=== PATIENT | female | born 1955 | race Caucasian/White ===

== ENCOUNTER 2018-09-15 09:21 | Inpatient (IN) | payer BC ==
--- NOTE | 2018-09-02 12:03 | HP ---
HISTORY AND PHYSICAL: DATE OF SURGERY: 09/15/18 DATE OF OFFICE VISIT: 09/02/18 SURGEON: Yvette Arias MD.* (DICTATED BY JULITO BROWN) PROCEDURE: Left total knee arthroplasty. CHIEF COMPLAINT: Left knee. HISTORY OF PRESENT ILLNESS: Ms. Jaquez is a 63-year-old female with continued complaints of left knee pain. She has failed conservative treatment and elected to proceed with a left total knee arthroplasty. PAST MEDICAL HISTORY: 1. Parkinson's disease. 2. GERD. 3. Depression. 4. Asthma. PAST SURGICAL HISTORY: 1. Breast biopsy. 2. Cholecystectomy. 3. Left knee arthroscopy. 4. Gastric bypass and ulcer repair. CURRENT MEDICATIONS: 1. Amantadine 100 mg twice a day. 2. Carbidopa/levodopa 25/100 three times a day. 3. Cymbalta 60 mg a day. 4. Multivitamin. 5. Probiotic. 6. CoQ10. 7. Vitamin D. 8. Ibuprofen as needed. 9. Vitamin B. 10. Melatonin. ALLERGIES: No known drug allergies. FAMILY HISTORY: Coronary artery disease. SOCIAL HISTORY: A 63-year-old female lives with her boyfriend. She does not smoke, use drugs or alcohol. REVIEW OF SYSTEMS: A complete 14-point review of systems is reviewed with the patient. It was all negative or noncontributory. She denies history of DVT, PE , hepatitis, HIV, or anesthesia problems. PHYSICAL EXAMINATION GENERAL: She is well developed, well nourished, in no acute distress. VITAL SIGNS: She stands 5 feet 1 inch tall, weighs 159 pounds. Her blood pressure is 140/84, heart rate 64. HEENT: Normocephalic, atraumatic. NECK: Supple. No palpable lymph nodes. PULMONARY: The lungs are clear to auscultation bilaterally. CARDIAC: Regular rate and rhythm. Strong S1 and S2. ABDOMEN: Soft, nontender, nondistended. NEUROLOGIC: She is alert and oriented x3. MUSCULOSKELETAL: Left lower extremity, the skin is intact. There are no open wounds or abrasions. There is a moderate joint effusion in the left knee. There is a 15-degree valgus deformity. Range of motion is 10 to 120 degrees of flexion with patellofemoral crepitus. She has a 2+ dorsalis pedis pulse. She is able to dorsiflex and plantarflex and she has intact sensation. ASSESSMENT AND PLAN: Ms. Jaquez is a 63-year-old female with end-stage osteoarthritis of the left knee. She has failed conservative treatment and elected to proceed with a left total knee arthroplasty. The surgery is scheduled for 09/15/[address] Arias discussed the risks and benefits of the surgery at today's visit and all of her questions were answered. She will follow up with Dr. Arias 2 weeks after the surgery. JULITO BROWN [id number] #: [id number]
[~2018-09-15 09:21] MED LIST: Acetaminophen TAB* 325 MG PO ONE; Buffered Lidocaine 1% SYRIN* 1 ML/SYRINGE INTRADERM ONE; Dexamethasone IV* 4 MG/ML 1 ML (4 MG) IV SLOW PU ONE; Famotidine TAB* 20 MG PO ONE; Gabapentin CAP(*) 300 MG PO ONE; Lactated Ringers 1000 ML Bag* 1,000 ML IV SCH; Tranexamic Acid 1,000 MG in NS 0.9% 50 ML* (outpatient use) IV SCH; celeCOXIB CAP* 200 MG PO ONE
--- OUTSIDE RECORDS SUMMARY | 2018-09-15 09:24 | XMS REPORT | Continuity of Care Document ---
:1955 External Reference #:[id number] Author Name Lauren Maher NP Address [address] [place] [address] Care Team Providers Name Role Phone Lauren Maher NP Care Team Information Extracorporeal Technician Unavailable Payers Date Identification Numbers Payment Provider Subscriber Policy Number: [id number] [facility] / [facility] Serene Quintero PayID: [id number] [address] [place] [address] Advance Directives Description No Information Available Problems Date Description Provider Status Onset: 06/15/2013 Parkinson's disease Natan Dobson DO Active Onset: 12/25/2015 Peptic ulcer without hemorrhage, Natan Dobson DO Active without perforation AND without obstruction Onset: 12/25/2015 Restless legs Natan Dobson DO Active Onset: 12/25/2015 Moderate recurrent major depression Natan Dobson DO Active Onset: 01/10/2018 Mild intermittent asthma Lauren Maher NP Active Onset: 01/10/2018 Low back pain Lauren Maher NP Active Onset: 01/10/2018 Allergic rhinitis due to pollen Lauren Maher NP Active Onset: 01/10/2018 Degenerative joint disease Lauren Maher NP Active involving multiple joints Onset: 07/15/2018 Vitamin D deficiency Lauren Maher NP Active Family History Date Family Member(s) Observation Comments Father Age 83 Kidney Failure Mother Hypothyroidism Mother Bipolar Disorder Mother Hypercholesterolemia Mother AAA Social History Type Date Description Comments Sex Unknown Marital Status Lives With Boyfriend 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 Tobacco Use Start: Unknown End: Unknown Former Cigarette Smoker Quit Smoking Status Reviewed: 09/09/18 Former Cigarette Smoker Quit ETOH Use Rarely consumes alcohol Tobacco Use Start: Unknown End: Unknown Patient is a former smoker quit 1985 Allergies, Adverse Reactions, Alerts Date Description Reaction Status Severity Comments 12/30/2012 NSAIDS Active 01/10/2018 Dust Mites Active Medications Medication Date Status Form Strength Qnty SIG Indications Ordering Provider Gabapentin 07/15/ Active Capsules 100mg 90caps take one M54.5 Digiovanna 2018 capsules , by mouth Lauren, at bedtime 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 Vitamin D3 07/15/ Active Capsules 2000Unit 1 by mouth E55.9 Digiovanna 2018 twice , every day LaurenRADHA Multivitamin 07/02/ Active Tablets 1 by mouth Z00.00 Olya, Adult 2017 every day DO Natan Coq10 03/06/ Active Capsules 100mg 1 by mouth Z00.00 Digiovanna 2015 every day , RADHA Glass Probiotic 12/24/ Active Capsules OTC 2 by mouth K27.9 Loya, 2016 every day DO Natan Ibuprofen 06/11/ Active Capsules 200mg 1-2 tabs M54.5 Olya, 2014 by mouth Natan, three DO times a day as needed with food or snack for pain Duloxetine HCL 09/18/ Active Caps DR 60mg 90caps take 1 F33.1 Digiovanna 2013 Part capsule by , mouth Lauren, every day 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 M54.5 Carbidopa-Levodopa ER Active Tablets ER 25-100mg 1 PO tid Kenan Ordonez MD Amantadine HCL Active Capsules 100mg 1 by tabatha Ordonez MD every day in the am and 1 by mouth every day at mid day Tumeric Active 1 tab M54.5 Unknown daily M15.0 Melatonin Active Capsules 1mg 1 by mouth every night as F33.1 Unknown needed M54.5 G25.81 Sulfamethoxazole/Trim 01/10/ Hx Tablets 800-160m 14tabs 1 by mouth R30.0 Digiovanna, ethoprim DS 2018 - g every Lauren 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 01/17/ hours for 7 2017 days Ammonium Lactate 01/06/ Hx Lotion 12% 400gm Apply To L30.1 Olya, 2017 - Hands Twice A DO Natan 01/10/ Day 2018 Nabumetone 10/06/ Hx Tablets 750mg 60tabs 1 by mouth M76.8 Olya, 2016 - twice a day 21 DO Natan 01/06/ with food 2016 Doxycycline Hyclate 09/28/ Hx Tablets 100mg 20tabs 1 by mouth L03.1 Yeyo 2017 - twice a day 1 19 MD Kya 10/08/ hour before a 2017 meal Hydrocortisone 09/28/ Hx Ointment 0.2% 60gm apply 3 times L30.1 Yeyo Valerate 2017 - daily to MD Kya 07/12/ rash until 2018 healed, then taper Naproxen Sodium 09/22/ Hx Tablets 550mg 60tabs take one M72.2 Olya, 2015 - tablet by DO Natan 10/06/ mouth twice a 2016 day with food as needed Tramadol HCL 03/12/ Hx Tablets 50mg 60tabs 1 by mouth 719.4 Olya, 2014 - every 4 hours 5 DO Natan 06/11/ as needed 2014 Halobetasol 06/25/ Hx Ointment 0.05% 60unit apply to hand Olya, Propionate 2013 - s twice a day DO Natan 2015 Pantoprazole Sodium 10/23/ Hx Tablets DR 40mg 90tabs 1 PO qd Olya, 2013 - DO Natan 2015 Voltaren 12/30/ Hx Gel 1% 30unit apply 2 gm up Olya, 2012 - s to every 6 DO Natan 11/05/ hours for 2014 pain Diphenhydramine HCL 12/30/ Hx Capsules 25mg Olya, 2012 - DO Natan 2015 Acetaminophen 12/30/ Hx Capsules 500mg 2 po tid prn Olya, 2012 - DO Natan 2014 Gabapentin / Hx Capsules 300mg 90caps 1 po QHS M79.1 Conner 0000 - MD Ras 2017 Carbidopa / Hx Tablets 25mg 1 PO tid Unknown 0000 - 2014 Ropinirole HCL / Hx Tablets 1mg 1/2 Tab AT G25.8 Marleny, 0000 - 6PM And 1 1 MD Kenan 09/28/ tablet at 2017 bedtime Gabapentin / Hx Capsules 100mg 1 by mouth at G20 Unknown 0000 - 5pm daily 2017 Iron / Hx Tablets 325(65Fe one by mouth Unknown 0000 - ) mg day 2016 Nabumetone / Hx Tablets 750mg 1 by mouth M54.5 Unknown 0000 - twice a day food 2017 Vitamin D3 Adult / Hx Chewtabs 1000Unit 1 by mouth Unknown Gummies 0000 - every day 2017 Immunizations CPT Code Status Date Vaccine Reaction Lot # 56074 Given 07/12/2017 Pneumococcal 23 Immunization Im inj completed, No [id number] Adult Or Immunosuppressed Reaction, Pt Patient tolerated well [id number] Given 07/12/2017 Tdap (Adacel) Ages 7 And Im inj completed, No [id number] Above Only Reaction, Pt tolerated well [id number] Refused 08/23/2018 Flu Vaccine NOS Pt says she does not get flu shots. RAYMUNDO GARDINER 08/23/18 Vital Signs Date Vital Result Comment 09/09/2018 9:54am Body Temperature 99.1 F tympanic Weight 158.50 lb Heart Rate 76 /min BP Systolic 138 mmHg BP Diastolic 78 mmHg Respiratory Rate 18 /min Height 61 inches 5'1" RAYMUNDO GARDINER 08/23/18 O2 % BldC Oximetry 97 % Room Air BMI (Body Mass Index) 29.9 kg/m2 08/23/2018 8:34am Body Temperature 98.0 F tympanic Weight 160.12 lb Heart Rate 76 /min BP Systolic 124 mmHg BP Diastolic 78 mmHg Respiratory Rate 16 /min Height 61 inches 5'1" RAYMUNDO GARDINER 08/23/18 BMI (Body Mass Index) 30.3 kg/m2 07/15/2018 10:45am Weight 162.25 lb Heart Rate 68 /min BP Systolic 144 mmHg BP Diastolic 78 mmHg BP Systolic Recheck 144 mmHg BP Diastolic Recheck 90 mmHg Respiratory Rate 18 /min 01/10/2018 9:03am Weight 170.44 lb Heart Rate 76 /min BP Systolic 122 mmHg BP Diastolic 80 mmHg Respiratory Rate 16 /min Height 61 inches 5'1" 01/10/18 SA,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 ARC BMI (Body Mass Index) 32.2 kg/m2 07/12/2017 10:27am Weight 189.00 lb Heart Rate 72 /min BP Systolic 116 mmHg BP Diastolic 78 mmHg Respiratory Rate 14 /min Height 61.5 inches 5'1.50" BH 07/12/17 BMI (Body Mass Index) 35.1 kg/m2 01/06/2017 10:59am Weight 198.00 lb Heart Rate 69 /min 72 Reg BP Systolic 118 mmHg BP Diastolic 70 mmHg BP Systolic Recheck 130 mmHg BP Diastolic Recheck 80 mmHg Respiratory Rate 14 /min Height 62 inches 5'2" BMI (Body Mass Index) 36.2 kg/m2 10/06/2016 2:31pm Weight 209.00 lb Heart Rate 80 /min BP Systolic 126 mmHg BP Diastolic 70 mmHg Respiratory Rate 16 /min Height 62 inches 5'2" BMI (Body Mass Index) 38.2 kg/m2 10/01/2016 8:56am Weight 209.00 lb pr PT Heart Rate 68 /min BP Systolic 124 mmHg BP Diastolic 84 mmHg Respiratory Rate 18 /min Height 62 inches 5'2" BMI (Body Mass Index) 38.2 kg/m2 09/28/2016 11:26am Weight 209.00 lb Heart Rate 72 /min BP Systolic 130 mmHg BP Diastolic 78 mmHg Respiratory Rate 18 /min Height 62 inches 5'2" BMI (Body Mass Index) 38.2 kg/m2 07/02/2016 1:16pm Weight 209.00 lb Heart Rate 78 /min 80 Reg BP Systolic 130 mmHg BP Diastolic 80 mmHg BP Systolic Recheck 130 mmHg BP Diastolic Recheck 80 mmHg Respiratory Rate 18 /min 03/06/2016 8:05am Weight 206.00 lb Heart Rate 72 /min BP Systolic 130 mmHg BP Diastolic 80 mmHg Respiratory Rate 18 /min Height 62 inches 5'2" BMI (Body Mass Index) 37.7 kg/m2 12/25/2015 10:52am Weight 201.00 lb Heart Rate 66 /min 72 Reg BP Systolic 122 mmHg BP Diastolic 80 mmHg BP Systolic Recheck 130 mmHg BP Diastolic Recheck 80 mmHg Respiratory Rate 18 /min Height 62 inches 5'2" BMI (Body Mass Index) 36.8 kg/m2 09/23/2015 1:02pm Weight 199.00 lb Heart Rate 76 /min BP Systolic 130 mmHg BP Diastolic 78 mmHg Respiratory Rate 18 /min 06/11/2015 11:15am Weight 191.38 lb Heart Rate 78 /min 72 Reg BP Systolic 142 mmHg BP Diastolic 80 mmHg BP Systolic Recheck 130 mmHg BP Diastolic Recheck 80 mmHg Respiratory Rate 24 /min 03/12/2015 2:31pm Weight 187.00 lb Heart Rate 72 /min BP Systolic 136 mmHg BP Diastolic 82 mmHg Respiratory Rate 18 /min 11/05/2014 4:08pm Weight 183.00 lb Heart Rate 66 /min 72 reg BP Systolic 150 mmHg BP Diastolic 90 mmHg BP Systolic Recheck 136 mmHg BP Diastolic Recheck 82 mmHg Respiratory Rate 18 /min Height 62 inches 5'2" (06/10) BMI (Body Mass Index) 33.5 kg/m2 06/25/2014 2:40pm BP Systolic 120 mmHg BP Diastolic 80 mmHg 06/25/2014 2:40pm Weight 181.00 lb Heart Rate 72 /min 72 Reg BP Systolic 130 mmHg BP Diastolic 90 mmHg Respiratory Rate 18 /min Height 62 inches 5'2" 04/16/2014 8:18am Body Temperature 98.1 F Weight 180.00 lb Heart Rate 74 /min BP Systolic 144 mmHg BP Diastolic 88 mmHg Respiratory Rate 18 /min Height 62 inches 5'2" 02/22/2014 1:10pm BP Systolic 128 mmHg BP Diastolic 80 mmHg 02/22/2014 1:10pm Weight 182.00 lb Heart Rate 66 /min 72 Reg BP Systolic 124 mmHg BP Diastolic 80 mmHg Respiratory Rate 18 /min Height 62 inches 5'2" O2 % BldC Oximetry 98 % Ra Results Test Date Facility Test Result H/L Range Note Comprehensive Met Panel-[facility]CMG 08/23/2018 [facility] Sodium 142 mmol/L 135- 146 1 Potassium 4.1 mmol/L 3.5-5.2 Chloride# 103 mmol/L 97-110 2 Carbon Dioxide 31 mmol/L 24-34 Glucose 92 mg/dL 70-105 BUN 20 mg/dL 6-26 Creatinine 0.9 mg/dL 0.5-1.4 Calcium 9.6 mg/dL 8.5-10.2 Total Protein 6.1 g/dL 6.0-8.0 Albumin 4.2 g/dL 3.6-4.9 Globulin 1.9 g/dL Low 2.0-3.5 A/G Ratio 2.2 Ratio 1.0-2.2 Total Bilirubin 1.0 mg/dL 0.1-1.3 Alkaline Phosphatase 112 U/L 24-140 Alt 3 U/L 3-42 Ast 21 U/L 8-42 Anion Gap 8 mmol/L 5-15 3 Shruti Egfr >60 >60 4 Non Shruti Egfr >60 >60 5 CBC with Auto Diff-fcmg 08/23/2018 [facility] WBC 8.1 K/uL 4.1-11.0 RBC 4.90 M/uL 4.00-5.40 Hemoglobin 14.7 gm/dL 12.0-16.0 Hematocrit 42.9 % 36.0-47.0 MCV 87.5 fL 80.0-97.0 MCH 30.0 pg 27.0-32.0 MCHC 34.2 g/dL 32.0-36.0 RDW 14.5 % 11.5-14.5 PLT Count 306 K/ul 140-400 MPV 7.6 FL 7.1-10.7 Neutrophil 67.7 % 35.0-75.0 Lymphocyte 23.1 % 16.0-52.0 Monocyte 7.6 % 2.0-10.0 Eosinophil 1.4 % 0.0-5.0 Basophil 0.2 % 0.0-4.0 Abs Neutrophils 5.5 K/uL 2.1-8.0 Abs Lymphocytes 1.9 K/uL 0.8-5.5 Abs Monocytes 0.6 K/uL 0.1-1.0 Abs Eosinophils 0.1 K/uL 0.0-0.5 Abs Basophils 0.0 K/uL 0.0-0.3 Rout Urine W/ Micro -RL 08/23/2018 [facility] Color HECTOR Appearance CLEAR Spec Grav Urine 1.026 (1.003-1.030) PH Urine 5.0 (5.0-7.5) Leuk Esterase NEGATIVE (Neg) Nitrite Urine NEGATIVE (Neg) Protein Urine NEGATIVE (Neg) Glucose Urine NEGATIVE (Neg) Ketone Urine TRACE (Neg) Urobilinogen 1.0 mg/dL (0-1.0) Bilirubin Urine 1+ Abnormal (Neg) 6 Blood/HGB Urine NEGATIVE (Neg) Urine WBC 0-2 [HPF] (0-5) Urine RBC 0-2 [HPF] (0-2) Epithelial Cells 1+ [HPF] 7 Laboratory 08/23/2018 [facility] Urine Culture Microbiology res 8 test finding <SEE NOTE> Laboratory 01/10/2018 [facility] Allia 9 test finding [phone] <SEE NOTE> Laboratory 01/10/2018 [facility] Pap Smear Thin SEE NOTE 10, 11 test finding Prep Vag/Cerv 01/10/2018 [facility] Vag/Cerv SEE NOTE 12 Culture -RL Culture Affirm 01/10/2018 [facility] Trichomonas Negative Negative Vaginalis Gardnerella Vaginalis Negative Negative Anh Species Negative Negative Laboratory 01/10/2018 [facility] Urine Culture Microbiology res Abnormal 13 test finding <SEE NOTE> Laboratory 01/03/2018 [facility] Hepatitis C NON REACTIVE Non 14 test finding Virus S/CORatio(Lasha Reactive Antibody CBC With Auto 01/03/2018 [facility] WBC 6.6 K/uL 4.1-11.0 Diff RBC 4.57 M/uL 4.00-5.40 Hemoglobin 13.6 gm/dL 12.0-16.0 Hematocrit 40.5 % 36.0-47.0 MCV 88.6 fL 80.0-97.0 MCH 29.7 pg 27.0-32.0 MCHC 33.5 g/dL 32.0-36.0 RDW 14.9 % High 11.5-14.5 PLT Count 296 K/ul 140-400 MPV 7.3 FL 7.1-10.7 Neutrophil 68.6 % 35.0-75.0 Lymphocyte 23.9 % 16.0-52.0 Monocyte 6.0 % 2.0-10.0 Eosinophil 1.3 % 0.0-5.0 Basophil 0.2 % 0.0-4.0 Abs Neutrophils 4.5 K/uL 2.1-8.0 Abs Lymphocytes 1.6 K/uL 0.8-5.5 Abs Monocytes 0.4 K/uL 0.1-1.0 Abs Eosinophils 0.1 K/uL 0.0-0.5 Abs Basophils 0.0 K/uL 0.0-0.3 Comprehensive Met Panel-[facility]CMG 01/03/2018 [facility] Sodium 143 mmol/L 135- 146 15 Potassium 3.6 mmol/L 3.5-5.2 Chloride# 105 mmol/L 97-110 16 Carbon Dioxide 29 mmol/L 24-34 Glucose 94 mg/dL 70-105 BUN 15 mg/dL 6-26 Creatinine 0.9 mg/dL 0.5-1.4 Calcium 8.9 mg/dL 8.5-10.2 Total Protein 5.8 g/dL Low 6.0-8.0 Albumin 3.8 g/dL 3.6-4.9 Globulin 2.0 g/dL 2.0-3.5 A/G Ratio 1.9 Ratio 1.0-2.2 Total Bilirubin 0.9 mg/dL 0.1-1.3 Alkaline Phosphatase 120 U/L 24-140 Alt 8 U/L 3-42 Ast 19 U/L 8-42 Shruti Egfr >60 >60 17 Non Shruti Egfr >60 >60 18 Anion Gap 9 mmol/L 5-15 19 Lipid 01/03/2018 [facility] Cholesterol 144 mg/dL 50-199 Triglycerides 63 mg/dL 30-200 HDL 56 mg/dL 35-85 20 Chol/ HDL Ratio 2.6 ratio Low 3.7-5.6 VLDL 13 mg/dL 2-29 LDL (Calc) 76 mg/dL 20-99 21 Iron Panel 12/31/2016 [facility] Iron, Total 63 g/dL 50-170 22 Transferrin 272.0 mg/dL 203.0-362.0 Tibc (calc) 381 g/dL 261-478 % Iron Saturation 16.5 % 13.0-45.0 Hemoglobin A1c 12/31/2016 [facility] Hemoglobin A1c 5.2 % 4.1-6.5 Estimated Average Glucose Calc 103 71-140 Comprehensive Met Panel-[facility]CMG 12/31/2016 [facility] Sodium 143 mmol/L 135- 146 23 Potassium 4.3 mmol/L 3.5-5.2 Chloride# 106 mmol/L 97-110 24 Carbon Dioxide 29 mmol/L 24-34 Glucose 92 mg/dL 70-105 BUN 17 mg/dL 6-26 Creatinine 1.0 mg/dL 0.5-1.4 Calcium 9.1 mg/dL 8.5-10.2 Total Protein 6.1 g/dL 6.0-8.0 Albumin 3.9 g/dL 3.6-4.9 Globulin 2.2 g/dL 2.0-3.5 A/G Ratio 1.8 Ratio 1.0-2.2 Total Bilirubin 0.9 mg/dL 0.1-1.3 Alkaline Phosphatase 123 U/L 24-140 Alt 3 U/L 3-42 Ast 20 U/L 8-42 Shruti Egfr >60 >60 25 Non Shruti Egfr 55 Low >60 26 Anion Gap 12 mmol/L 7-16 27 CBC With Auto Diff 12/31/2016 [facility] WBC 7.6 K/uL 4.1-11.0 RBC 4.67 M/uL 4.00-5.40 Hemoglobin 13.6 gm/dL 12.0-16.0 Hematocrit 41.1 % 36.0-47.0 MCV 88.0 fL 80.0-97.0 MCH 29.1 pg 27.0-32.0 MCHC 33.1 g/dL 32.0-36.0 RDW 15.7 % High 11.5-14.5 PLT Count 328 K/ul 140-400 Neutrophil 74.5 % 35.0-75.0 Lymphocyte 17.3 % 16.0-52.0 Monocyte 6.8 % 2.0-10.0 Eosinophil 0.9 % 0.0-5.0 Basophil 0.5 % 0.0-4.0 Abs Neutrophils 5.7 K/uL 2.1-8.0 Abs Lymphocytes 1.3 K/uL 0.8-5.5 Abs Monocytes 0.5 K/uL 0.1-1.0 Abs Eosinophils 0.1 K/uL 0.0-0.5 Abs Basophils 0.0 K/uL 0.0-0.3 CBC With Auto Diff 06/24/2016 [facility] WBC 6.2 K/uL 4.1-11.0 RBC 4.29 M/uL 4.00-5.40 Hemoglobin 10.3 gm/dL Low 12.0-16.0 Hematocrit 33.1 % Low 36.0-47.0 MCV 77.1 fL Low 80.0-97.0 MCH 24.0 pg Low 27.0-32.0 MCHC 31.2 g/dL Low 32.0-36.0 RDW 18.6 % High 11.5-14.5 PLT Count 386 K/ul 140-400 Neutrophil 72.5 % 35.0-75.0 Lymphocyte 18.3 % 16.0-52.0 Monocyte 6.3 % 2.0-10.0 Eosinophil 1.3 % 0.0-5.0 Basophil 1.6 % 0.0-4.0 Abs Neutrophils 4.5 K/uL 2.1-8.0 Abs Lymphocytes 1.1 K/uL 0.8-5.5 Abs Monocytes 0.4 K/uL 0.1-1.0 Abs Eosinophils 0.1 K/uL 0.0-0.5 Abs Basophils 0.1 K/uL 0.0-0.3 Basic (BMP) 06/24/2016 [facility] Sodium 140 mmol/L 134-142 Potassium 4.5 mmol/L 3.5-5.2 Chloride 107 mmol/L 97-109 Carbon Dioxide 27 mmol/L 24-34 Glucose 109 mg/dL High 70-105 BUN 12 mg/dL 6-26 Creatinine 0.9 mg/dL 0.5-1.4 Calcium 8.6 mg/dL 8.5-10.2 Anion Gap 11 mmol/L 6-14 Non Shruti Egfr >60 >60 28 Shruti Egfr >60 >60 29 Laboratory test finding 06/24/2016 [facility] Esr 16 mm/hr 0-20 CPK 84 U/L 12-199 Hepatic Panel (LFT) 06/24/2016 [facility] Total Protein 6.0 g/dL 6.0-8.0 Albumin 3.8 g/dL 3.6-4.9 Total Bilirubin 0.7 mg/dL 0.1-1.3 Direct Bilirubin 0.2 mg/dL 0.0-0.4 Alkaline Phosphatase 108 U/L 24-140 Alt 3 U/L 3-42 Ast 22 U/L 8-42 Alkaline Phosphatase 06/24/2016 [facility] Alk Phos Total 137 U/L High 30 Isoenzymes-RL Alk Phos Liver Calc 85 U/L 31 Alk Phos Bone Calc 52 U/L 32 Alk Phos Other Calc 0 U/L 33 CBC With Auto Diff 12/24/2015 [facility] WBC 6.2 K/uL 4.1-11.0 RBC 4.27 M/uL 4.00-5.40 Hemoglobin 10.4 gm/dL Low 12.0-16.0 Hematocrit 32.4 % Low 36.0-47.0 MCV 75.9 fL Low 80.0-97.0 MCH 24.4 pg Low 27.0-32.0 MCHC 32.2 g/dL 32.0-36.0 RDW 17.9 % High 11.5-14.5 PLT Count 368 K/ul 140-400 Neutrophil 70.9 % 35.0-75.0 Lymphocyte 19.8 % 16.0-52.0 Monocyte 6.2 % 2.0-10.0 Eosinophil 2.2 % 0.0-5.0 Basophil 0.9 % 0.0-4.0 Abs Neutrophils 4.4 K/uL 2.1-8.0 Abs Lymphocytes 1.2 K/uL 0.8-5.5 Abs Monocytes 0.4 K/uL 0.1-1.0 Abs Eosinophils 0.1 K/uL 0.0-0.5 Abs Basophils 0.1 K/uL 0.0-0.3 Basic (BMP) 12/24/2015 [facility] Sodium 140 mmol/L 134-142 Potassium 5.0 mmol/L 3.5-5.2 Chloride 107 mmol/L 97-109 Carbon Dioxide 28 mmol/L 24-34 Glucose 91 mg/dL 70-105 BUN 15 mg/dL 6-26 Creatinine 0.8 mg/dL 0.5-1.4 Calcium 8.8 mg/dL 8.5-10.2 Anion Gap 10 mmol/L 6-14 Non Shruti Egfr >60 >60 34 Shruti Egfr >60 >60 35 Laboratory test finding 12/24/2015 [facility] Esr 11 mm/hr 0-20 CPK 80 U/L 12-199 Hepatic Panel (LFT) 12/24/2015 [facility] Total Protein 5.7 g/dL Low 6.0- 8.0 Albumin 3.5 g/dL Low 3.6-4.9 Total Bilirubin 0.6 mg/dL 0.1-1.3 Direct Bilirubin 0.1 mg/dL 0.0-0.4 Alkaline Phosphatase 106 U/L 24-140 Alt 7 U/L 3-42 Ast 19 U/L 8-42 Alkaline Phosphatase 12/24/2015 [facility] Alk Phos Total 126 U/L High 36 Isoenzymes-RL Alk Phos Liver Calc 79 U/L 37 Alk Phos Bone Calc 47 U/L 38 Alk Phos Other Calc 0 U/L 39 Laboratory test 10/26/2014 [facility] Alkaline Phosphatase 115 U/L 24-140 40 finding Basic (BMP) 10/26/2014 [facility] Sodium 138 mmol/L 134-142 Potassium 4.5 mmol/L 3.5-5.2 Chloride 106 mmol/L 97-109 Carbon Dioxide 26 mmol/L 24-34 Glucose 88 mg/dL 70-105 BUN 16 mg/dL 6-26 Creatinine 1.0 mg/dL 0.5-1.4 Calcium 9.1 mg/dL 8.5-10.2 Anion Gap 11 mmol/L 6-14 Non Shruti Egfr 56 Low >60 41 Shruti Egfr >60 >60 42 Alkaline Phosphatase 10/26/2014 [facility] Alk Phos Total 132 U/L High 43 Isoenzymes-RL Alk Phos Liver Calc 90 U/L 44 Alk Phos Bone Calc 42 U/L 45 Alk Phos Other Calc 0 U/L 46 CBC With Auto Diff 10/26/2014 [facility] WBC 6.4 K/uL 4.1-11.0 RBC 4.35 M/uL 4.00-5.40 Hemoglobin 12.1 gm/dL 12.0-16.0 Hematocrit 36.3 % 36.0-47.0 MCV 83.4 fL 80.0-97.0 MCH 27.8 pg 27.0-32.0 MCHC 33.4 g/dL 32.0-36.0 RDW 17.3 % High 11.5-14.5 PLT Count 330 K/ul 140-400 Neutrophil 71.6 % 35.0-75.0 Lymphocyte 20.2 % 16.0-52.0 Monocyte 6.8 % 2.0-10.0 Eosinophil 0.9 % 0.0-5.0 Basophil 0.5 % 0.0-4.0 Abs Neutrophils 4.6 K/uL 2.1-8.0 Abs Lymphocytes 1.3 K/uL 0.8-5.5 Abmon 0.4 K/uL 0.1-1.0 Abs Eosinophils 0.1 K/uL 0.0-0.5 Abs Basophils 0.0 K/uL 0.0-0.3 Laboratory test finding 01/20/2013 N2N/CCD Import Culture Urine See Note 47 Liver Function Tests 01/09/2013 N2N/CCD Import Alb/Glob 1.3 ratio Albumin 3.4 g/dL Low 3.5-5.0 Alkaline Phosphatase 162 U/L High 50-136 Bilirubin,Direct 0.1 mg/dL 0.1-0.4 Bilirubin,Indirect 0.4 mg/dL 0.0-0.9 Bilirubin,Total 0.5 mg/dL 0.2-1.2 Globulin 2.7 g/dL 1.9-4.3 SGPT/Alt 22 U/L Low 30-65 Sgot/Ast 23 U/L 16-40 Total Protein 6.1 g/dL Low 6.3-8.0 Laboratory test finding 01/09/2013 N2N/CCD Import . See Note 48 Calcium 9.2 mg/dL 8.7-10.2 Gamma Glutamyl Transpeptidase 13 U/L 8-35 PTH,Intact 53 pg/mL 15-65 LDL Cholesterol Profile 12/30/2012 N2N/CCD Import Cholesterol 148 mg/dL 120-200 HDL Cholesterol 66 mg/dL 45-83 LDL-Cholesterol 65 mg/dL 62-129 Triglycerides 87 mg/dL 16-150 Laboratory test finding 12/30/2012 N2N/CCD Import Alb/Glob 1.2 ratio Albumin 3.7 g/dL 3.5-5.0 Alkaline Phosphatase 158 U/L High 50-136 Anion Gap 17 mEq/L High 8-16 BUN 16 mg/dL 5-23 BUN/Creat 17.7 ratio Bas% 0.1 % 0.0-1.1 Baso # 0.01 K/uL 0.0-0.1 Bilirubin,Total 0.5 mg/dL 0.2-1.2 Calcium 8.7 mg/dL 8.5-10.1 Carbon Dioxide 25 mEq/L 18-29 Chloride 107 mmol/L 98-107 Creatinine 0.9 mg/dL 0.5-1.4 Eo% 1.0 % 0.0-6.6 Eos # 0.09 K/uL 0.0-0.5 Ferritin 6.2 ng/mL 3-105 Free T4 0.96 ng/dL 0.71-1.85 Globulin 3.0 g/dL 1.9-4.3 Glom Filtration Rate, Estimate >60 mL/min >60 Glucose 87 mg/dL 76-115 Hematocrit 36.8 % 36.0-46.1 Hemoglobin 11.8 gm/dL 11.6-15.8 If >60 mL/min >60 49 Lymph # 2.33 K/uL 0.8-3.4 Lymph % 24.9 % 17.0-46.1 Mean Cell Volume 85.2 fl 80.9-99.0 Mean Corpuscular HGB 27.3 pg 25.9-32.7 Mean Corpuscular HGB Conc 32.1 g/dL 30.8-34.3 Mean Platelet Volume 9.3 fL 8.9-12.4 [place] # 0.75 K/uL 0.3-0.9 [place] % 8.0 % 4.3-13.2 Neut# 6.16 K/uL 1.0-7.0 Neut% 66.0 % 40.4-72.8 Platelet Count 386 K/uL High 155-360 Potassium 4.2 mmol/L 3.5-5.1 Red Blood Count 4.32 M/uL 3.90-5.40 Red Cell Distri Width %CV 16.3 % High 11.7-14.4 Red Cell Distri Width SD 49.5 fl High 3-47 SGPT/Alt 21 U/L Low 30-65 Serum Iron 38 g/dL 25-156 50 Sgot/Ast 20 U/L 16-40 Sodium 145 mmol/L 136-145 Thyroid Stim Hormone 1.93 uIU/mL 0.49-4.67 Total Protein 6.7 g/dL 6.3-8.0 Vitamin B12 258 pg/mL 200-900 51 Vitamin D,25-Hydroxy 21.0 ng/mL Low 30.0-100.0 52 White Blood Count 9.3 K/uL 3.1-10.7 Laboratory test finding 12/30/2012 N2N/CCD Import Urine Culture See Note 53 1 Updated reference range on new analyzer 2 Updated reference range on new analyzer 3 Updated Reference Range 4 Concerning GFR Guidelines for Americans: Normal function or mild renal disease, if clinically at risk: >/=60 mL/min Moderately decreased: 30-59 Severely decreased: 15-29 Renal failure: <15 5 Concerning GFR Guidelines: Normal function or mild renal disease, if clinically at risk: >/=60 mL/min Moderately decreased: 30-59 Severely decreased: 15-29 Renal failure: <15 Glomerular Filtration Rate (GFR) is estimated based on the MDRD equation, which assumes a steady state for creatinine as recommended by the National Kidney Disease Education Program in conjunction with the National Institutes of Health and the National Kidney Foundation. Clinical conditions in which it may be necessary to measure GFR by using clearance methods include extremes of age and body size, severe malnutrition or obesity, diseases of skeletal muscle, paraplegia or quadriplegia, vegetarian diet, rapidly changing kidney function, and calculation of the dose of potentially toxic drugs that are excreted by the kidneys. 6 INTERFERING SUBSTANCES MAY CAUSE FALSE POSITIVE BILIRUBIN, WHICH HAS BEEN SHOWN TO BE CLINICALLY INSIGNIFICANT. CORRELATE WITH OTHER TESTING. 7 Unless otherwise specified, testing performed by [facility] [address] [place] [id number] Microbiology results SOURCE Clean Catch Midstream FINAL RESULT <10,000 CFU/ML Mixed urogenital victorino consistent with contamination. Request fresh specimen if indicated. [address] [place] [address] Amplified Molecular High Risk HPV Test Patient Name:SERENE QUINTERO Patient :1955 Ordering Physician:LAUREN MAHER 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 Accession Number [id number] Specimen(s) Received A: High Risk HPV Thin Prep Endocervical Pap Smear - One Vial Other Case Numbers: [id number] Diagnosis RISK GROUPS RESULTS High Risk NEGATIVE Tested for HPV Types (16, 18, 31, 33, 35, 39, 45, 51, 52, 56, 58, 59, 66, 68) Reported: 01/13/2018 08:45 Electronically Signed Out By Dixie Ireland christina Cabrera 10 SCHEDULE 1 WEEK PRIOR TO NEXT VISIT 11 [facility]. [address] [place] [id number] CYTOLOGY REPORT Source of Specimen(s): Thin Prep Endocervical Pap Smear - One Vial Date of Last Menstrual Period: 2005 Menstrual History: Post-menopausal Other Clinical Conditions: Last Pap Smear: 2009 normal HPV ASSAY REQUESTED Specimen Adequacy SATISFACTORY FOR EVALUATION PRESENCE OF ENDOCERVICAL/TRANSFORMATION ZONE COMPONENT General Categorization NEGATIVE FOR INTRAEPITHELIAL LESION OR MALIGNANCY Interpretation NEGATIVE FOR INTRAEPITHELIAL LESION OR MALIGNANCY Atrophy Comment HPV testing will be performed and a separate report will be issued. Reported: 01/12/2018 13:37 Electronically Signed Out By Caroline Gilliam MS,[facility])([facility]) [facility] ICD9 Code: Z01.419 CPT code: A: [id number] Unless otherwise specified, [facility] [address] [id number] 12 SPECIMEN DESCRIPTION VAGINAL SPECIMEN GROUP B STREP CULT. NEGATIVE: BETA HEMOLYTIC STREPTOCOCCI GROUP B B Y PCR CULTURE RESULTS NORMAL VAGINAL VICTORINO NO NEISSERIA GONORRHOEAE ISOLATED REPORT STATUS FINAL 01/13/2018 Unless otherwise specified, testing performed by [facility] [address] [place] [id number] [phone] Microbiology results SOURCE Clean Catch Midstream COLONY COUNT >100,000 CFU/ML PRELIMINARY RESULT Gram Negative Asim. ID & Sensitivity to Follow. 01/11/2018 2:55 PM FINAL RESULT Escherichia coli (Isolate 1) Sensitivity Analysis Isolate 1 --------- AMIKACIN <=16 S AMOXICILLIN/CLAVULANATE <=8/4 S AMPICILLIN <=8 S AMPICILLIN/SULBACTAM <=8/4 S CEFAZOLIN <=2 S CEFEPIME <=8 S CEFOTAXIME <=2 S CEFTRIAXONE <=1 S CEFUROXIME <=4 S CIPROFLOXACIN <=1 S ERTAPENEM <=0.5 S GENTAMYCIN <=2 S IMIPENEM <=1 S LEVOFLOXACIN <=2 S NITROFURANTOIN <=32 S PIPERACILLIN/TAZOBACTAM <=16 S TETRACYCLINE <=4 S TOBRAMYCIN <=4 S TRIMETHOPRIM/SULFAMETHOXAZ <=2/38 S S=Sensitive;I=Indeterminate;R=Resistant 14 S/CO Ratio >/=1.0 is REACTIVE. S/CO <5.0 is Low Reactive. S/CO >/= 5.0 is High Reactive. Effective Feb 19, 2017 all anti-HCV reactive samples are sent for quantitative PCR confirmation. 15 Updated reference range on new analyzer 16 Updated reference range on new analyzer 17 Concerning GFR Guidelines for Americans: Normal function or mild renal disease, if clinically at risk: >/=60 mL/min Moderately decreased: 30-59 Severely decreased: 15-29 Renal failure: <15 18 Concerning GFR Guidelines: Normal function or mild renal disease, if clinically at risk: >/=60 mL/min Moderately decreased: 30-59 Severely decreased: 15-29 Renal failure: <15 Glomerular Filtration Rate (GFR) is estimated based on the MDRD equation, which assumes a steady state for creatinine as recommended by the National Kidney Disease Education Program in conjunction with the National Institutes of Health and the National Kidney Foundation. Clinical conditions in which it may be necessary to measure GFR by using clearance methods include extremes of age and body size, severe malnutrition or obesity, diseases of skeletal muscle, paraplegia or quadriplegia, vegetarian diet, rapidly changing kidney function, and calculation of the dose of potentially toxic drugs that are excreted by the kidneys. 19 Updated Reference Range 20 Per NCEP ATP III Guidelines: Results lower than 40 mg/dL are suggestive of increased risk for coronary artery disease. Results > or=to 60 mg/dL are considered a negative risk factor. 21 Per NCEP ATP III Guidelines: Normal Population <130 Patients with medical conditions: CHD/DM Optimal: <100 Borderline high: 130-159 High: 160-189 Very high: >189 22 faxed to [facility] SCHEDULE 1 WEEK PRIOR TO NEXT VISIT 23 Updated reference range on new analyzer 24 Updated reference range on new analyzer 25 Concerning GFR Guidelines for Americans: Normal function or mild renal disease, if clinically at risk: >/=60 mL/min Moderately decreased: 30-59 Severely decreased: 15-29 Renal failure: <15 26 Concerning GFR Guidelines: Normal function or mild renal disease, if clinically at risk: >/=60 mL/min Moderately decreased: 30-59 Severely decreased: 15-29 Renal failure: <15 Glomerular Filtration Rate (GFR) is estimated based on the MDRD equation, which assumes a steady state for creatinine as recommended by the National Kidney Disease Education Program in conjunction with the National Institutes of Health and the National Kidney Foundation. Clinical conditions in which it may be necessary to measure GFR by using clearance methods include extremes of age and body size, severe malnutrition or obesity, diseases of skeletal muscle, paraplegia or quadriplegia, vegetarian diet, rapidly changing kidney function, and calculation of the dose of potentially toxic drugs that are excreted by the kidneys. 27 Updated reference range on new analyzer 28 Concerning GFR Guidelines: Normal function or mild renal disease, if clinically at risk: >/=60 mL/min Moderately decreased: 30-59 Severely decreased: 15-29 Renal failure: <15 Glomerular Filtration Rate (GFR) is estimated based on the MDRD equation, which assumes a steady state for creatinine as recommended by the National Kidney Disease Education Program in conjunction with the National Institutes of Health and the National Kidney Foundation. Clinical conditions in which it may be necessary to measure GFR by using clearance methods include extremes of age and body size, severe malnutrition or obesity, diseases of skeletal muscle, paraplegia or quadriplegia, vegetarian diet, rapidly changing kidney function, and calculation of the dose of potentially toxic drugs that are excreted by the kidneys. 29 Concerning GFR Guidelines for Americans: Normal function or mild renal disease, if clinically at risk: >/=60 mL/min Moderately decreased: 30-59 Severely decreased: 15-29 Renal failure: <15 30 Reference range: 40 to 120 31 Reference range: 0 to 94 INTERPRETIVE INFORMATION: Alk-Phosphatase Liver Calc Bone Specific Alkaline Phosphatase (9312279) and 5'-nucleotidase ([id number]) may be useful in identifying disorders of bone and liver, respectively. 32 Reference range: 0 to 55 33 Performed by [facility], [employer],[place] [id number] [email or web address], Hermilo Douglas MD, Lab. Director Unless otherwise specified, testing performed by [facility] [address] [place] [address] 34 Concerning GFR Guidelines: Normal function or mild renal disease, if clinically at risk: >/=60 mL/min Moderately decreased: 30-59 Severely decreased: 15-29 Renal failure: <15 Glomerular Filtration Rate (GFR) is estimated based on the MDRD equation, which assumes a steady state for creatinine as recommended by the National Kidney Disease Education Program in conjunction with the National Institutes of Health and the National Kidney Foundation. Clinical conditions in which it may be necessary to measure GFR by using clearance methods include extremes of age and body size, severe malnutrition or obesity, diseases of skeletal muscle, paraplegia or quadriplegia, vegetarian diet, rapidly changing kidney function, and calculation of the dose of potentially toxic drugs that are excreted by the kidneys. 35 Concerning GFR Guidelines for Americans: Normal function or mild renal disease, if clinically at risk: >/=60 mL/min Moderately decreased: 30-59 Severely decreased: 15-29 Renal failure: <15 36 Reference range: 40 to 120 37 Reference range: 0 to 94 INTERPRETIVE INFORMATION: Alk-Phosphatase Liver Calc Bone Specific Alkaline Phosphatase (8732553) and 5'-nucleotidase (4973429) may be useful in identifying disorders of bone and liver, respectively. 38 Reference range: 0 to 55 39 Performed by [facility], [address] [facility] [place] [address] [email or web address], Hermilo Douglas MD, Lab. Director Unless otherwise specified, testing performed by [facility] [place] [address] 40 SCHEDULE 1 WEEK PRIOR TO NEXT VISIT 41 Concerning GFR Guidelines: Normal function or mild renal disease, if clinically at risk: >/=60 mL/min Moderately decreased: 30-59 Severely decreased: 15-29 Renal failure: <15 Glomerular Filtration Rate (GFR) is estimated based on the MDRD equation, which assumes a steady state for creatinine as recommended by the National Kidney Disease Education Program in conjunction with the National Institutes of Health and the National Kidney Foundation. Clinical conditions in which it may be necessary to measure GFR by using clearance methods include extremes of age and body size, severe malnutrition or obesity, diseases of skeletal muscle, paraplegia or quadriplegia, vegetarian diet, rapidly changing kidney function, and calculation of the dose of potentially toxic drugs that are excreted by the kidneys. 42 Concerning GFR Guidelines for Americans: Normal function or mild renal disease, if clinically at risk: >/=60 mL/min Moderately decreased: 30-59 Severely decreased: 15-29 Renal failure: <15 43 Reference range: 40 to 120 44 Reference range: 0 to 94 INTERPRETIVE INFORMATION: Alk-Phosphatase Liver Calc Bone Specific Alkaline Phosphatase (9644379) and 5'-nucleotidase (4686900) may be useful in identifying disorders of bone and liver, respectively. 45 Reference range: 0 to 55 46 Performed by [facility], [address] [place] [id number] [email or web address], Hermilo Douglas MD, Lab. Director Unless otherwise specified, testing performed by [facility] [address] [place] [phone] NO GROWTH: FINAL REPORT 48 Interpretation Intact PTH Calcium (pg/mL) (mg/dL) Normal 15 - 65 8.6 - 10.2 Primary Hyperparathyroidism >65 >10.2 Secondary Hyperparathyroidism >65 <10.2 Non-Parathyroid Hypercalcemia <65 >10.2 Hypoparathyroidism <15 < 8.6 Non-Parathyroid Hypocalcemia 15 - 65 < 8.6 Performed at: RN - [facility] [address] [id number] Department Director: Michelle Trevino MD, Phone: [phone] 49 Note: Persistent reduction for 3 months or more in an eGFR <60 mL/min/1.73 m2 defines CKD. Patients with eGFR values >/=60 mL/min/1.73 m2 may also have CKD if evidence of persistent proteinuria is present. The original MDRD equation for estimated GFR is not valid for patients less than 18 years of age. Additional information may be found at www.kdoqi.org. 50 QUERY: Is the Patient Fasting? U 51 Borderline result. Homocysteine and Methylmalonic acid should be considered for values greater than 200 pg/mL and less that 400 pg/mL. 52 Vitamin D deficiency has been defined by the [place] of [employer] and an Endocrine Society practice guideline as a level of serum 25-OH vitamin D less than 20 ng/mL (1,2). The Endocrine Society went on to further define vitamin D insufficiency as a level between 21 and 29 ng/mL (2). 1. IOM ([place] of [employer]). 2010. Dietary reference intakes for calcium and D. [place]: The National Academies Press. 2. Amaris MF, Cristela KNIGHT, Kenny ZARATE, et al. Evaluation, treatment, and prevention of vitamin D deficiency: an Endocrine Society clinical practice guideline. JCEM. 2010; 96(7):1911-30. Performed at: RN - [facility] [address] [id number] Department Director: Michelle Trevino MD, Phone: [phone] COLONY COUNT ! >100,000 CFU/ml Organism 1 ! ESCHERICHIA COLI QUANTITY ! MANY ESCHERICHIA COLI Target Route Dose M.I.C. RX AB COST ------ ----- -------- ------ -- ------ NITROFURANTOIN <=16 S TRIMETHOPRIM/ SULFAMETHOXAZOLE <=20 S AMPICILLIN >=32 R CEFAZOLIN <=4 S AMPICILLIN/SULBACTAM >=32 R CIPROFLOXACIN <=0.25 S PIPERACILLIN/TAZOBACTAM <=4 S CEFTAZIDIME <=1 S CEFTRIAXONE <=1 S CEFEPIME <=1 S LEVOFLOXACIN <=0.12 S IMIPENEM <=0.25 S GENTAMICIN <=1 S TOBRAMYCIN <=1 S Procedures Date Code Description Status 09/09/2018 25481 Measure Blood Oxygen Level Single Determination Completed 08/23/2018 75739 Electrocardiogram Complete Completed 07/15/2018 91221 Brief Emotional/Behav Assessment W/ Scoring Doc Per Completed Standard [facility] 01/10/2018 96980 Brief Emotional/Behav Assessment W/ Scoring Doc Per Completed Standard [facility] 01/05/2018 50244628 Mammogram Completed 10/01/2016 74056 X-Ray Foot Complete Completed 10/01/2016 87426 X-Ray Foot Complete Completed 10/01/2016 20274 X-Ray Ankle Ap & Lateral Completed 10/01/2016 91679 X-Ray Ankle Ap & Lateral Completed 09/28/2016 13324 X-Ray Foot Complete Completed 03/06/2016 04618 X-Ray Knee Complete W/Obliques & Tunnel And/Or Standing Completed Views 09/23/2015 47062 X-Ray Foot Complete Completed 03/12/2015 86887 X-Ray Hip Complete Two Views Completed 03/12/2015 54563 X-Ray Pelvis Ap Only Completed 03/12/2015 05452 X-Ray Spine Lumbosacral Complete W/Oblique Views Completed 06/28/2009 [id number] Colonoscopy Completed Encounters Type Date Location Provider Dx Diagnosis Office Visit 08/23/2018 PSYCHIATRIC Gabrielle, Z01.818 Encounter for other 8:30a Lauren, 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 preprocedural examination M25.562 Pain in LEFT knee F33.1 Major depressive disorder, recurrent, moderate G20 Parkinson's disease M15.0 Primary generalized (osteo)arthritis M54.5 Low back pain G25.81 Restless legs syndrome J45.20 Mild intermittent asthma, uncomplicated J30.1 Allergic rhinitis due to pollen K27.9 Peptic ulc, site unsp, unsp as ac or chr, w/o hemor or perf E55.9 Vitamin D deficiency, unspecified H43.311 Vitreous membranes and strands, RIGHT eye Z68.30 Body mass index (BMI) 30.0-30.9, adult Office Visit 07/15/2018 11:00a PSYCHIATRIC Lauren Maher, F33.1 Major depressive 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 disorder, recurrent, moderate G20 Parkinson's disease M15.0 Primary generalized (osteo)arthritis M54.5 Low back pain G25.81 Restless legs syndrome J45.20 Mild intermittent asthma, uncomplicated J30.1 Allergic rhinitis due to pollen K27.9 Peptic ulc, site unsp, unsp as ac or chr, w/o hemor or perf M25.562 Pain in LEFT knee H43.311 Vitreous membranes and strands, RIGHT eye E55.9 Vitamin D deficiency, unspecified R03.0 Elevated blood-pressure reading, w/o diagnosis of htn Office Visit 01/10/2018 9:00a PSYCHIATRIC Lauren Maher, 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) w/o abn findings F33.1 Major depressive disorder, recurrent, moderate G20 Parkinson's disease J45.20 Mild intermittent asthma, uncomplicated M54.5 Low back pain G25.81 Restless legs syndrome J30.1 Allergic rhinitis due to pollen M15.0 Primary generalized (osteo)arthritis M79.1 Myalgia R30.0 Dysuria Z68.32 Body mass index (BMI) 32.0-32.9, adult Office Visit 07/12/2017 10:00a PSYCHIATRIC Lauren Maher, F33.1 Major depressive 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 disorder, recurrent, moderate G20 Parkinson's disease M79.1 Myalgia K27.9 Peptic ulc, site unsp, unsp as ac or chr, w/o hemor or perf J45.20 Mild intermittent asthma, uncomplicated D50.9 Iron deficiency anemia, unspecified L30.1 Dyshidrosis [pompholyx] M54.5 Low back pain Z12.31 Encntr screen mammogram for malignant neoplasm of breast Z11.59 Encounter for screening for other viral diseases Z68.35 Body mass index (BMI) 35.0-35.9, adult Z23 Encounter for immunization Office Visit 01/06/2017 11:00a PSYCHIATRIC Natan Dobson DO F33.1 Major depressive disorder, recurrent, moderate R73.01 Impaired fasting glucose G20 Parkinson's disease M79.1 Myalgia K27.9 Peptic ulc, site unsp, unsp as ac or chr, w/o hemor or perf R74.8 Abnormal levels of other serum enzymes G25.81 Restless legs syndrome J45.20 Mild intermittent asthma, uncomplicated Office Visit 10/06/2016 2:30p PSYCHIATRIC Natan Dobson DO M76.821 Posterior tibial tendinitis, RIGHT leg Office Visit 10/01/2016 9:00a PSYCHIATRIC Eleonora Townsend PA M79.671 Pain in RIGHT foot Office Visit 09/28/2016 11:30a PSYCHIATRIC Kya Orona MD M79.671 Pain in RIGHT foot L30.1 Dyshidrosis [pompholyx] L03.119 Cellulitis of unspecified part of limb D50.9 Iron deficiency anemia, unspecified Office Visit 07/02/2016 1:15p PSYCHIATRIC Natan Dobson DO F33.1 Major depressive disorder, recurrent, moderate G20 Parkinson's disease M79.1 Myalgia K27.9 Peptic ulc, site unsp, unsp as ac or chr, w/o hemor or perf R74.8 Abnormal levels of other serum enzymes G25.81 Restless legs syndrome J45.20 Mild intermittent asthma, uncomplicated D50.9 Iron deficiency anemia, unspecified R73.01 Impaired fasting glucose Office Visit 03/06/2016 8:00a PSYCHIATRIC Lauren Maher, M25.562 Pain in LEFT knee 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 Office Visit 12/25/2015 11:00a PSYCHIATRIC Natan Dobson DO F33.1 Major depressive disorder, recurrent, moderate G20 Parkinson's disease R74.9 Abnormal serum enzyme level, unspecified M79.1 Myalgia K27.9 Peptic ulc, site unsp, unsp as ac or chr, w/o hemor or perf G25.81 Restless legs syndrome J45.20 Mild intermittent asthma, uncomplicated D50.9 Iron deficiency anemia, unspecified J30.1 Allergic rhinitis due to pollen Z68.36 Body mass index (BMI) 36.0-36.9, adult Office Visit 09/23/2015 1:00p PSYCHIATRIC Natan Dobson DO M72.2 Plantar fascial fibromatosis Office Visit 06/11/2015 11:15a PSYCHIATRIC Natan Dobson DO F33.1 Major depressive disorder, recurrent, moderate G20 Parkinson's disease J45.20 Mild intermittent asthma, uncomplicated R74.8 Abnormal levels of other serum enzymes M79.1 Myalgia K27.9 Peptic ulc, site unsp, unsp as ac or chr, w/o hemor or perf Office Visit 03/12/2015 2:30p PSYCHIATRIC Natan Dobson DO 719.45 Pain Joint Pelvic Region & Thigh Office Visit 11/05/2014 4:15p PSYCHIATRIC Natan Dobson DO 296.32 Depressive Disorder Major Recurrent Moderate 332.0 Paralysis Agitans 493.10 Asthma Intrinsic Unspecified 790.5 Serum Enzyme Levels Abnormal Other Nonspec 729.1 Myalgia & Myositis Unspec 533.90 Peptic Ulcer Unspec Acute Chronic W/O Hemo Or Perf W/O Obstr Plan of Treatment Future Appointment(s):01/23/2019 10:00 am - Lauren Maher NP at PSYCHIATRIC01/06 8:25 am - Schedule, Laboratory at PSYCHIATRIC09/09/2018 - Lauren Maher NPJ06.9 Acute upper respiratory infection, unspecifiedComments:Increase rest and fluids.Tylenol 1000mg every 4-6 hours as needed for headache or fever.Recommend Mucinex(Guaifenesin) 600mg every 12 hours until cough has resolved.May continue DayQuil and NyQuil as neededHumidifier or steam therapy may be helpful.Viral infections last 10-14 days and cough may lingeras long as 4 -6 weeks. Call for symptoms persistent or worsening by 09/12.Follow up:PRN for fever >101 or no improvement by Wednesday
--- OUTSIDE RECORDS SUMMARY | 2018-09-15 09:25 | XMS REPORT | Continuity of Care Document ---
:1955 External Reference #:[id number] Author Name JULITO Johnson Address [address], [place] [address] Care Team Providers Name Role Phone Maria Luisa Anthony FNP Primary Care Physician Unavailable Payers Date Identification Numbers Payment Provider Subscriber Effective: 2012 Policy Number: [id number] [facility] Serene Quintero Group Number: [id number] [address] PayID: [id number] [place] [address] Advance Directives Description No Information Available Problems Date Description Provider Status Onset: 04/19/2014 Difficulty speaking Jeffrey Silverio M.D. Active Onset: 04/19/2014 Parkinson's disease Jeffrey Silverio M.D. Active Onset: 08/12/2018 Acquired genu valgum Yvette Arias M.D. Active Onset: 08/12/2018 Localized, primary osteoarthritis Yvette Arias M.D. Active Family History Date Family Member(s) Observation Comments General Heart Disease General Thyroid Disease General Kidney Disease Social History Type Date Description Comments Sex Unknown Marital Status Lives With Male Partner Occupation Retired Tobacco Use Start: Unknown Quit 1986 Tobacco Use Start: Unknown Never Smoked Cigars Tobacco Use Start: Unknown Never Smoked A Pipe Smokeless Tobacco Never Used Smokeless Tobacco ETOH Use Denies alcohol use Tobacco Use Start: Unknown End: Patient is a former smoker Unknown Recreational Drug Use Denies Drug Use Smoking Status Reviewed: 08/12/18 Patient is a former smoker Exercise Type/Frequency Exercises sporadically Allergies, Adverse Reactions, Alerts Description No Known Drug Allergies Medications Medication Date Status Form Strength Qnty SIG Indications Ordering Provider Amantadine HCL 10/18/ Active Capsules 100mg 180cap 1 by G24.01 Kenan mcbride mouth [place], twice a M.D. day Carbidopa-Levod 12/21/ Active Tablets 25-100mg 90tabs 1 by Kenan mccarty 2013 mouth [place], every M.D. morning, 1 tab by mouth qnoon and 1 tab by mouth every night Cymbalta / Active Caps DR 60mg 30caps 1 by Unknown 0000 Part mouth every day Multi For Her / Active Tablets 1 by Unknown 50+ 0000 mouth every day Probiotic / Active Tablets DR daily Unknown 0000 Co-Enzyme Q10 / Active Capsules 200mg 2 by Unknown 0000 mouth every day Vitamin D3 / Active Chewtabs 1000Unit 1 by Unknown Adult Gummies 0000 mouth every day otc Ibuprofen / Active Capsules 200mg 1 tab by Unknown 0000 mouth as needed Vitamin B / Active Tablets 1 by Unknown Complex 0000 mouth every day Tumeric With / Active 1 po qday Unknown Cumin 0000 Melatonin / Active Chewtabs 2.5mg 1 tab Unknown Gummies 0000 every night at bedtime as needed Gabapentin 07/16/ Hx Capsules 100mg 30caps 1 by G25.81 Kenan Arana 2016 - mouth [place]y, 07/29/ around M.D. 2018 dinner time Ropinirole HCL 01/22/ Hx Tablets 1mg 135tab 1 at hs Kenan Arana 2014 - s Marleny, 01/13/ M.D. 2016 Ropinirole HCL 11/22/ Hx Tablets 0.25mg 30tabs 1 tab by Kenan Arana 2014 - mouth Marleny, 01/22/ every M.D. 2014 night at bedtime for 1 week then 2 every night at bedtime for 1 week then 3 every night at bedtime for 1 Lodosyn 08/24/ Hx Tablets 25mg 90tabs 1 po tid Kenan Arana 2013 - with Marleny, 11/21/ carbidopa M.D. 2014 /levodopa Carbidopa/Levod 06/08/ Hx Tablets 25-100mg 90tabs 1 po qam Kenan mccarty 2012 - pc for 1 Marleny, 12/21/ wk then 1 M.D. 2013 bid pc for 1 wk then 1 tid pc Vitamin D-3 / Hx Capsules 1000Unit 90caps 2 by Unknown 0000 - mouth 01/18/ every day 2016 Gabapentin / Hx Capsules 300mg 1 by Unknown 0000 - mouth @hs 2017 Gail / Hx Tablets 60mg 180tab 1 by Unknown 0000 - s mouth once a 2016 day as needed Pantoprazole / Hx Tablets DR 40mg 90tabs 1 by Unknown Sodium 0000 - mouth every day 2016 Ferrousul / Hx Tablets 325(65Fe) 1 by Unknown 0000 - mg mouth day 2016 Naproxen / Hx Tablets 500mg 1 tablet Unknown 0000 - with food by mouth 2017 twice a day prn Immunizations Description No Information Available Vital Signs Date Vital Result Comment 08/12/2018 10:48am Height 61 inches 5'1" Weight 158.00 lb BP Systolic 122 mmHg BP Diastolic 79 mmHg Respiratory Rate 16 /min Pain Level 4 BMI (Body Mass Index) 29.9 kg/m2 08/08/2018 9:02am Heart Rate 64 /min BP Systolic Sitting 138 mmHg BP Diastolic Sitting 86 mmHg Respiratory Rate 16 /min Pain Level 2 with movement O2 % BldC Oximetry 99 % 03/03/2018 3:20pm Height 61 inches 5'1" Weight 179.00 lb Heart Rate 70 /min BP Systolic Sitting 124 mmHg BP Diastolic Sitting 70 mmHg Respiratory Rate 17 /min Pain Level 4 back pain, worse in the am BMI (Body Mass Index) 33.8 kg/m2 10/18/2017 10:30am Height 61 inches 5'1" Weight 179.00 lb Heart Rate 72 /min BP Systolic Sitting 130 mmHg BP Diastolic Sitting 80 mmHg Respiratory Rate 16 /min BMI (Body Mass Index) 33.8 kg/m2 08/26/2017 9:09am Height 62 inches 5'2" Weight 184.38 lb Heart Rate 76 /min BP Systolic Sitting 152 mmHg BP Diastolic Sitting 94 mmHg Respiratory Rate 12 /min BMI (Body Mass Index) 33.7 kg/m2 01/14/2017 8:39am Height 62 inches 5'2" Weight 199.00 lb Heart Rate 76 /min BP Systolic 116 mmHg BP Diastolic 74 mmHg Respiratory Rate 16 /min BMI (Body Mass Index) 36.4 kg/m2 07/16/2016 10:50am Height 62 inches 5'2" Weight 207.00 lb Heart Rate 72 /min BP Systolic Sitting 122 mmHg BP Diastolic Sitting 78 mmHg O2 % BldC Oximetry 98 % BMI (Body Mass Index) 37.9 kg/m2 05/16/2015 11:49am Height 62 inches 5'2" Weight 185.31 lb Heart Rate 64 /min BP Systolic Sitting 128 mmHg BP Diastolic Sitting 82 mmHg BMI (Body Mass Index) 33.9 kg/m2 11/22/2014 1:32pm Height 62 inches 5'2" Weight 180.00 lb Heart Rate 68 /min BP Systolic Sitting 126 mmHg BP Diastolic Sitting 90 mmHg BMI (Body Mass Index) 32.9 kg/m2 05/17/2014 8:50am Height 62 inches 5'2" Weight 178.00 lb Heart Rate 70 /min BP Systolic Sitting 148 mmHg BP Diastolic Sitting 100 mmHg BMI (Body Mass Index) 32.6 kg/m2 04/19/2014 9:44am Weight 178.00 lb Heart Rate 78 /min BP Systolic 122 mmHg BP Diastolic 80 mmHg 04/19/2014 9:42am Height 62 inches 5'2" Weight 178.00 lb BMI (Body Mass Index) 32.6 kg/m2 Results Description No Information Available Procedures Date Code Description Status 08/08/2018 39369 Xray Knee 3 Views Completed 04/19/2014 39606 Fibroptic Laryngoscopy Completed Encounters Type Date Location Provider Dx Diagnosis Office Visit 08/12/2018 Orthopedic Yvette Arias, M25.562 Pain in left knee 10:30a [facility] M25.462 Effusion, left knee M17.12 Unilateral primary osteoarthritis, left knee M21.062 Valgus deformity, not elsewhere classified, left knee G20 Parkinson's disease Office Visit 08/08/2018 Orthopedic Hugo Squires M17.12 Unilateral primary 9:00a [facility] MD osteoarthritis, left AT [place] knee M25.362 Other instability, left knee M25.562 Pain in left knee Office Visit 03/03/2018 [place]rya Arana G2Tano Parkinson's 3:30p [facility] disease [place] G25.81 Restless legs syndrome G24.01 Drug induced subacute dyskinesia Office Visit 10/18/2017 10:30a [facility] Kenan Arana G2Tano Parkinson's [facility] M.D. disease G25.81 Restless legs syndrome G24.01 Drug induced subacute dyskinesia Office Visit 08/26/2017 [place] G20 Parkinson's 9:15a [facility] disease [facility] G25.81 Restless legs syndrome Office Visit 01/14/2017 [place] Arana G20 Parkinson's 8:30a [facility] disease [facility] G25.81 Restless legs syndrome Office Visit 07/16/2016 [place] Arana G20 Parkinson's 10:45a [facility] disease [facility] G25.81 Restless legs syndrome Office Visit 05/16/2015 [place] Arana G20 Parkinson's 11:45a [facility] disease [facility] Office Visit 11/22/2014 [place] SYuliya 332.0 Paralysis 1:30p [facility] 784.42 Dysphonia Office Visit 05/17/2014 [place] SYuliya 332.0 Paralysis 8:45a [facility] Office Visit 04/19/2014 [facility] [place] 784.42 Dysphonia 9:45a C.M.AYuliya AT Naresh Silverio M.D. 332.0 Paralysis itans Office Visit 11/23/2013 [place] Arana 332.0 Paralysis 3:15p [facility]0 [facility]alysis 8:45a [facility] Office Visit 06/08/2013 [place] 332.0 Paralysis 3:00p [facility] Plan of Treatment Future Appointment(s):09/15/2018 11:30 am - JAIRO Warren [facility]/15/2018 11:30 am - JULITO Johnson at [facility]09/15/2018 11:30 am - Yvette Arias M.D. [facility]/2018 10:00 am - Yvette Arias M.D. at [facility]/01/2018 9:30 am - Kenan Farmer M.D. at [facility]08/12/2018 - Yvette Arias M.D.M25.562 Pain in left kneeM25.462 Effusion, left kneeM17.12 Unilateral primary osteoarthritis, left kneeFollow up:Follow up: 7-10 days before pfaargtQ78.062 Valgus deformity , not elsewhere classified, left kneeG20 Parkinson's disease
--- OUTSIDE RECORDS SUMMARY | 2018-09-15 09:25 | XMS REPORT | Continuity of Care Document ---
:1955 External Reference #:[id number] Author Name Kaelyn Grigsby Care Team Providers Name Role Phone Lauren Maher NP Care Team Information Helicopter Technician Unavailable Payers Date Identification Numbers Payment Provider Subscriber Policy Number: [id number] [facility] Serene Quintero PayID: [id number] [address] [place] [address] Advance Directives Description No Information Available Problems Date Description Provider Status Onset: 06/15/2013 Parkinson's disease Natan Dobson DO Active Onset: 12/25/2015 Peptic ulcer without hemorrhage, Natan Dobson DO Active without perforation AND without obstruction Onset: 12/25/2015 Restless legs Natan Dobson DO Active Onset: 12/25/2015 Moderate recurrent major depression Natan Dobson DO Active Onset: 01/10/2018 Mild intermittent asthma Lauren Maher MACHINE [employer]OP MAKER HELPER Active Onset: 01/10/2018 Low back pain Lauren Maher NP Active Onset: 01/10/2018 Allergic rhinitis due to pollen Lauren Maher NP Active Onset: 01/10/2018 Degenerative joint disease Lauren Maher MACHINE HOOP MAKER HELPER Active involving multiple joints Onset: 07/15/2018 Vitamin [...] Former Cigarette Smoker Quit Smoking Status Reviewed: 08/23/18 Former Cigarette Smoker Quit ETOH Use Rarely [...] capsules , by mouth Lauren, at bedtime MACHINE HOOP MAKER HELPER Vitamin D3 07/15/ Active Capsules 2000Unit 1 by mouth E55.9 Digiovanna 2019 twice , every day RADHA Glass Multivitamin 07/02/ Active Tablets 1 by mouth Z00.00 Olya, Adult 2017 every day DO Natan Coq10 03/06/ Active Capsules 100mg 1 by mouth Z00.00 Digiovanna 2015 every day , RADHA Glass Probiotic 12/24/ Active Capsules OTC 2 by mouth K27.9 Olya, 2016 every day DO Natan Ibuprofen 06/11/ Active Capsules 200mg 1-2 tabs M54.5 Olya, 2014 by mouth Natan, three DO times a day as needed with food or snack for pain Duloxetine HCL 09/18/ Active Caps DR 60mg 90caps take 1 F33.1 Digiovanna 2013 Part capsule by , mouth Lauren, every day MACHINE [employer]OP MAKER HELPER M54.5 Carbidopa-Levodopa ER Active Tablets ER 25-100mg 1 PO tid G20 Kenan Farmer MD Amantadine HCL Active Capsules 100mg 1 [...] Digiovanna, ethoprim DS 2018 - g every 12 Lauren, MACHINE HOOP MAKER HELPER 07/23/ hours for 7 2017 days Ammonium Lactate 01/06/ Hx Lotion 12% 400gm Apply To L30.1 Olya 2017 - Hands Twice A DO Natan [...] Ointment 0.2% 60gm apply 3 times L30.1 Omar Orona 2017 - daily to MD Kya 07/12/ [...] Hx Ointment 0.05% 60unit apply to hand Olya Propionate 2014 - s twice a day DO Natan [...] Capsules 300mg 90caps 1 po QHS M79.1 Axel Prieto - MD Ras 2017 Carbidopa / Hx Tablets 25mg 1 PO tid Unknown 0000 - 2014 Ropinirole HCL / Hx Tablets 1mg 1/2 Tab AT G25.8 Axel Farmer - 6PM And 1 1 MD Kenan 09/28/ tablet at 2017 bedtime Gabapentin // Hx Capsules 100mg 1 by mouth at [...] Code Status Date Vaccine Reaction Lot # [id number] Given 07/12/2017 Pneumococcal 23 Immunization Im inj completed, No [id number] Adult Or Immunosuppressed Reaction, Pt Patient tolerated well [id number] Given 07/12/2017 Tdap (Adacel) Ages 7 And Im inj completed, No [id number] Above Only Reaction, Pt tolerated well Q2039 Refused 08/23/2018 Flu Vaccine NOS Pt says she does not get flu shots. RAYMUNDO GARDINER 08/23/18 Vital Signs Date Vital Result Comment 08/23/2018 8:34am Body Temperature 98.0 F tympanic [...] 16 /min Height 61 inches 5'1" 01/10/18 RAYMUNDO GARDINER BMI (Body Mass Index) 32.2 kg/m2 07/12/2017 10:27am Weight 189.00 lb Heart Rate 72 /min BP Systolic 116 mmHg BP Diastolic 78 mmHg Respiratory Rate 14 /min Height 61.5 inches 5'1.50" 07/12/17 BMI (Body Mass Index) 35.1 kg/m2 [...] Date Facility Test Result H/L Range Note Laboratory test [facility] Urine Culture <pending> finding 9 Laboratory test [facility] 1 finding 8 [phone] Allia <SEE NOTE> Laboratory test [facility] Pap Smear Thin SEE NOTE 2, 3 finding 8 Prep Vag/Cerv [facility] Vag/Cerv Culture SEE NOTE 4 Culture -RL 8 Affirm [facility] Trichomonas Negative Negative 8 Vaginalis Gardnerella Vaginalis Negative Negative Anh Species Negative Negative Laboratory 01/10/2018 [facility] Urine Culture Microbiology res Abnormal 5 test finding <SEE NOTE> Laboratory 01/03/2018 [facility] Hepatitis C NON REACTIVE Non Reactive 6 test finding Virus S/CORatio(Lasha Antibody CBC With Auto 01/03/2018 [facility] WBC [...] 01/03/2018 [facility] Sodium 143 mmol/L 135- 146 7 Potassium 3.6 mmol/L 3.5-5.2 Chloride# 105 mmol/L 97-110 8 Carbon Dioxide 29 mmol/L 24-34 Glucose 94 mg/dL 70-105 BUN 15 mg/dL 6-26 Creatinine 0.9 mg/dL 0.5-1.4 Calcium 8.9 mg/dL 8.5-10.2 Total Protein 5.8 g/dL Low 6.0-8.0 Albumin 3.8 g/dL 3.6-4.9 Globulin 2.0 g/dL 2.0-3.5 A/G Ratio 1.9 Ratio 1.0-2.2 Total Bilirubin 0.9 mg/dL 0.1-1.3 Alkaline Phosphatase 120 U/L 24-140 Alt 8 U/L 3-42 Ast 19 U/L 8-42 Shruti Egfr >60 >60 9 Non Shruti Egfr >60 >60 10 Anion Gap 9 mmol/L 5-15 11 Lipid 01/03/2018 [facility] Cholesterol 144 mg/dL 50-199 Triglycerides 63 mg/dL 30-200 HDL 56 mg/dL 35-85 12 Chol/ HDL Ratio 2.6 ratio Low 3.7-5.6 VLDL 13 mg/dL 2-29 LDL (Calc) 76 mg/dL 20-99 13 Iron Panel 12/31/2016 [facility] Iron, Total 63 g/dL 50-170 14 Transferrin 272.0 mg/dL 203.0-362.0 Tibc (calc) 381 g/dL 261-478 % Iron Saturation 16.5 % 13.0-45.0 Hemoglobin A1c 12/31/2016 [facility] Hemoglobin A1c 5.2 % 4.1-6.5 Estimated Average Glucose Calc 103 71-140 Comprehensive Met Panel-FCMG 12/31/2016 [facility] Sodium 143 mmol/L 135- 146 15 Potassium 4.3 mmol/L 3.5-5.2 Chloride# 106 mmol/L 97-110 16 Carbon Dioxide 29 mmol/L 24-34 Glucose 92 mg/dL 70-105 BUN 17 mg/dL 6-26 Creatinine 1.0 mg/dL 0.5-1.4 Calcium 9.1 mg/dL 8.5-10.2 Total Protein 6.1 g/dL 6.0-8.0 Albumin 3.9 g/dL 3.6-4.9 Globulin 2.2 g/dL 2.0-3.5 A/G Ratio 1.8 Ratio 1.0-2.2 Total Bilirubin 0.9 mg/dL 0.1-1.3 Alkaline Phosphatase 123 U/L 24-140 Alt 3 U/L 3-42 Ast 20 U/L 8-42 Shruti Egfr >60 >60 17 Non Shruti Egfr 55 Low >60 18 Anion Gap 12 mmol/L 7-16 19 CBC With Auto Diff 12/31/2016 [facility] WBC 7.6 K/uL 4.1-11.0 RBC 4.67 M/uL [...] K/uL 0.0-0.3 CBC With Auto Diff 06/24/2016 [facility] WBC 6.2 K/uL 4.1-11.0 RBC 4.29 M/uL [...] mmol/L 6-14 Non Shruti Egfr >60 >60 20 Shruti Egfr >60 >60 21 Laboratory test finding 06/24/2016 [facility] Esr 16 mm/hr 0-20 CPK 84 U/L 12-199 Hepatic Panel (LFT) 06/24/2016 [facility] Total Protein 6.0 g/dL 6.0-8.0 Albumin 3.8 g/dL 3.6-4.9 Total Bilirubin 0.7 mg/dL 0.1-1.3 Direct Bilirubin 0.2 mg/dL 0.0-0.4 Alkaline Phosphatase 108 U/L 24-140 Alt 3 U/L 3-42 Ast 22 U/L 8-42 Alkaline Phosphatase 06/24/2016 [facility] Alk Phos Total 137 U/L High 22 Isoenzymes-RL Alk Phos Liver Calc 85 U/L 23 Alk Phos Bone Calc 52 U/L 24 Alk Phos Other Calc 0 U/L 25 CBC With Auto Diff 12/24/2015 [facility] WBC [...] Basophils 0.1 K/uL 0.0-0.3 Basic (BMP) 12/24/2015 [facility] Sodium 140 mmol/L 134-142 Potassium 5.0 mmol/L 3.5-5.2 Chloride 107 mmol/L 97-109 Carbon Dioxide 28 mmol/L 24-34 Glucose 91 mg/dL 70-105 BUN 15 mg/dL 6-26 Creatinine 0.8 mg/dL 0.5-1.4 Calcium 8.8 mg/dL 8.5-10.2 Anion Gap 10 mmol/L 6-14 Non Shruti Egfr >60 >60 26 Shruti Egfr >60 >60 27 Laboratory test finding 12/24/2015 [facility] Esr 11 mm/hr 0-20 CPK 80 U/L 12-199 Hepatic Panel (LFT) 12/24/2015 [facility] Total Protein 5.7 g/dL Low 6.0- 8.0 Albumin 3.5 g/dL Low 3.6-4.9 Total Bilirubin 0.6 mg/dL 0.1-1.3 Direct Bilirubin 0.1 mg/dL 0.0-0.4 Alkaline Phosphatase 106 U/L 24-140 Alt 7 U/L 3-42 Ast 19 U/L 8-42 Alkaline Phosphatase 12/24/2015 [facility] Alk Phos Total 126 U/L High 28 Isoenzymes-RL Alk Phos Liver Calc 79 U/L 29 Alk Phos Bone Calc 47 U/L 30 Alk Phos Other Calc 0 U/L 31 Laboratory test 10/26/2014 [facility] Alkaline Phosphatase 115 U/L 24-140 32 finding Basic (BMP) 10/26/2014 [facility] Sodium 138 mmol/L 134-142 Potassium 4.5 mmol/L 3.5-5.2 Chloride 106 mmol/L 97-109 Carbon Dioxide 26 mmol/L 24-34 Glucose 88 mg/dL 70-105 BUN 16 mg/dL 6-26 Creatinine 1.0 mg/dL 0.5-1.4 Calcium 9.1 mg/dL 8.5-10.2 Anion Gap 11 mmol/L 6-14 Non Shruti Egfr 56 Low >60 33 Shruti Egfr >60 >60 34 Alkaline Phosphatase 10/26/2014 [facility] Alk Phos Total 132 U/L High 35 Isoenzymes-RL Alk Phos Liver Calc 90 U/L 36 Alk Phos Bone Calc 42 U/L 37 Alk Phos Other Calc 0 U/L 38 CBC With Auto Diff 10/26/2014 [facility] WBC 6.4 K/uL 4.1-11.0 RBC 4.35 M/uL [...] 01/20/2013 N2N/CCD Import Culture Urine See Note 39 Liver Function Tests 01/09/2013 N2N/CCD Import Alb/Glob 1.3 ratio Albumin 3.4 g/dL Low 3.5-5.0 Alkaline Phosphatase 162 U/L High 50-136 Bilirubin,Direct 0.1 mg/dL 0.1-0.4 Bilirubin,Indirect 0.4 mg/dL 0.0-0.9 Bilirubin,Total 0.5 mg/dL 0.2-1.2 Globulin 2.7 g/dL 1.9-4.3 SGPT/Alt 22 U/L Low 30-65 Sgot/Ast 23 U/L 16-40 Total Protein 6.1 g/dL Low 6.3-8.0 Laboratory test finding 01/09/2013 N2N/CCD Import . See Note 40 Calcium 9.2 mg/dL 8.7-10.2 Gamma Glutamyl Transpeptidase [...] 11.8 gm/dL 11.6-15.8 If >60 mL/min >60 41 Lymph # 2.33 K/uL 0.8-3.4 Lymph % 24.9 % 17.0-46.1 Mean Cell Volume 85.2 fl 80.9-99.0 Mean Corpuscular HGB 27.3 pg 25.9-32.7 Mean Corpuscular HGB Conc 32.1 g/dL 30.8-34.3 Mean Platelet Volume 9.3 fL 8.9-12.4 [place]eton # 0.75 K/uL 0.3-0.9 [place] % 8.0 % 4.3-13.2 Neut# 6.16 K/uL 1.0-7.0 Neut% 66.0 % 40.4-72.8 Platelet Count 386 K/uL High 155-360 Potassium 4.2 mmol/L 3.5-5.1 Red Blood Count 4.32 M/uL 3.90-5.40 Red Cell Distri Width %CV 16.3 % High 11.7-14.4 Red Cell Distri Width SD 49.5 fl High 3-47 SGPT/Alt 21 U/L Low 30-65 Serum Iron 38 g/dL 25-156 42 Sgot/Ast 20 U/L 16-40 Sodium 145 mmol/L 136-145 Thyroid Stim Hormone 1.93 uIU/mL 0.49-4.67 Total Protein 6.7 g/dL 6.3-8.0 Vitamin B12 258 pg/mL 200-900 43 Vitamin D,25-Hydroxy 21.0 ng/mL Low 30.0-100.0 44 White Blood Count 9.3 K/uL 3.1-10.7 Laboratory test finding 12/30/2012 N2N/CCD Import Urine Culture See Note [address] [facility] [address] [address] Amplified Molecular High Risk HPV Test Patient Name:SERENE QUINTERO Patient :1955 Ordering Physician:LAUREN MAHER MACHINE HOOP MAKER HELPER Accession Number [id number] Specimen(s) Received A: High Risk HPV Thin Prep Endocervical Pap Smear - One Vial Other Case Numbers: [id number] Diagnosis RISK GROUPS RESULTS High Risk NEGATIVE Tested for HPV Types (16, 18, 31, 33, 35, 39, 45, 51, 52, 56, 58, 59, 66, 68) Reported: 01/13/2018 08:45 Electronically Signed Out By Dixie Ireland christina Cabrera 2 SCHEDULE 1 WEEK PRIOR TO NEXT VISIT 3 [facility] [address] [place] [address] CYTOLOGY REPORT Source of Specimen(s): Thin Prep [...] 13:37 Electronically Signed Out By Caroline Gilliam MS,SCT(ASCP)([facility]) [facility] ICD9 Code: Z01.419 CPT code: A: XR349C Unless otherwise specified, testing performed by [facility] [address] [place] [id number] 4 SPECIMEN DESCRIPTION VAGINAL SPECIMEN GROUP B STREP CULT. NEGATIVE: BETA HEMOLYTIC STREPTOCOCCI GROUP B B Y PCR CULTURE RESULTS NORMAL VAGINAL VICTORINO NO NEISSERIA GONORRHOEAE ISOLATED REPORT STATUS FINAL 01/13/2018 Unless otherwise specified, testing performed by [facility] [address] [place] [id number] 5 Microbiology results SOURCE Clean Catch Midstream COLONY [...] TOBRAMYCIN <=4 S TRIMETHOPRIM/SULFAMETHOXAZ <=2/38 S S=Sensitive;I=Indeterminate;R=Resistant 6 S/CO Ratio >/=1.0 is REACTIVE. S/CO <5.0 is Low Reactive. S/CO >/= 5.0 is High Reactive. Effective Feb 19, 2017 all anti-HCV reactive samples are sent for quantitative PCR confirmation. 7 Updated reference range on new analyzer 8 Updated reference range on new analyzer 9 Concerning GFR Guidelines for Americans: Normal function or mild renal disease, if clinically at risk: >/=60 mL/min Moderately decreased: 30-59 Severely decreased: 15-29 Renal failure: <15 10 Concerning GFR Guidelines: Normal function or mild [...] drugs that are excreted by the kidneys. 11 Updated Reference Range 12 Per NCEP ATP III Guidelines: Results lower than 40 mg/dL are suggestive of increased risk for coronary artery disease. Results > or=to 60 mg/dL are considered a negative risk factor. 13 Per NCEP ATP III Guidelines: Normal Population <130 Patients with medical conditions: CHD/DM Optimal: <100 Borderline high: 130-159 High: 160-189 Very high: >189 14 faxed to [facility] SCHEDULE 1 WEEK PRIOR TO NEXT VISIT 15 Updated reference range on new analyzer [...] are excreted by the kidneys. 19 Updated reference range on new analyzer 20 Concerning GFR Guidelines: Normal function or mild [...] drugs that are excreted by the kidneys. 21 Concerning GFR Guidelines for Americans: Normal function or mild renal disease, if clinically at risk: >/=60 mL/min Moderately decreased: 30-59 Severely decreased: 15-29 Renal failure: <15 22 Reference range: 40 to 120 23 Reference range: 0 to 94 INTERPRETIVE INFORMATION: Alk-Phosphatase Liver Calc Bone Specific Alkaline Phosphatase (1001496) and 5'-nucleotidase (0425907) may be useful in identifying disorders of bone and liver, respectively. 24 Reference range: 0 to 55 25 Performed by [facility], [address] [email or web address] [address] [email or web address], Hermilo Douglas MD, Lab. Director Unless otherwise specified, testing performed by [facility] [place] [address] 26 Concerning GFR Guidelines: Normal function or [...] that are excreted by the kidneys. 27 Concerning GFR Guidelines for Americans: Normal function or mild renal disease, if clinically at risk: >/=60 mL/min Moderately decreased: 30-59 Severely decreased: 15-29 Renal failure: <15 28 Reference range: 40 to 120 29 Reference range: 0 to 94 INTERPRETIVE INFORMATION: Alk-Phosphatase Liver Calc Bone Specific Alkaline Phosphatase (4706395) and 5'-nucleotidase (7231810) may be useful in identifying disorders of bone and liver, respectively. 30 Reference range: 0 to 55 31 Performed by [facility], [address] [facility] [place] [address] [email or web address], Hermilo Douglas MD, Lab. Director Unless otherwise specified, testing performed by [facility] [place] [address] 32 SCHEDULE 1 WEEK PRIOR TO NEXT VISIT 33 Concerning GFR Guidelines: Normal function or mild [...] drugs that are excreted by the kidneys. 34 Concerning GFR Guidelines for Americans: Normal function or mild renal disease, if clinically at risk: >/=60 mL/min Moderately decreased: 30-59 Severely decreased: 15-29 Renal failure: <15 35 Reference range: 40 to 120 36 Reference range: 0 to 94 INTERPRETIVE INFORMATION: Alk-Phosphatase Liver Calc Bone Specific Alkaline Phosphatase (9710932) and 5'-nucleotidase (5043401) may be useful in identifying disorders of bone and liver, respectively. 37 Reference range: 0 to 55 38 Performed by [facility], [address] [place] [address] www.[email or web address], Hermilo Douglas MD, Lab. Director Unless otherwise specified, testing performed by [facility] [address] [place] [address] 39 NO GROWTH: FINAL REPORT 40 Interpretation Intact PTH Calcium (pg/mL) (mg/dL) Normal 15 - 65 8.6 - 10.2 Primary Hyperparathyroidism >65 >10.2 Secondary Hyperparathyroidism >65 <10.2 Non-Parathyroid Hypercalcemia <65 >10.2 Hypoparathyroidism <15 < 8.6 Non-Parathyroid Hypocalcemia 15 - 65 < 8.6 Performed at: RN - [facility] [address] [id number] Occupational Therapist'S Assistant: Michelle Trevino MD, Phone: [phone] 41 Note: Persistent reduction for 3 months or more in an eGFR <60 mL/min/1.73 m2 defines CKD. Patients with eGFR values >/=60 mL/min/1.73 m2 may also have CKD if evidence of persistent proteinuria is present. The original MDRD equation for estimated GFR is not valid for patients less than 18 years of age. Additional information may be found at www.[email or web address]. 42 QUERY: Is the Patient Fasting? U 43 Borderline result. Homocysteine and Methylmalonic acid should be considered for values greater than 200 pg/mL and less that 400 pg/mL. 44 Vitamin D deficiency has been defined by the Harvey of Medicine and an Endocrine Society practice guideline as a level of serum 25-OH vitamin D less than 20 ng/mL (1,2). The Endocrine Society went on to further define vitamin D insufficiency as a level between 21 and 29 ng/mL (2). 1. IOM (Harvey of Medicine). 2010. Dietary reference intakes for calcium and D. [place]: The National Academies Press. 2. Amaris MF, Cristela KNIGHT, Kenny ZARATE, et al. Evaluation, treatment, and prevention of vitamin D deficiency: an Endocrine Society clinical practice guideline. JCEM. 2010; 96(7):1911-30. Performed at: RN - [facility] [address] [id number] Occupational Therapist'S Assistant: Michelle Trevino MD, Phone: [phone] 45 COLONY COUNT ! >100,000 CFU/ml Organism 1 [...] <=1 S Procedures Date Code Description Status 08/23/2018 11930 Electrocardiogram Complete Completed 07/15/2018 59947 Brief Emotional/Behav Assessment W/ Scoring Doc Per Completed Standard Inst 01/10/2018 39852 Brief Emotional/Behav Assessment W/ Scoring Doc Per Completed Standard Inst 01/05/2018 74103873 Mammogram Completed 10/01/2016 73098 X-Ray Foot Complete Completed 10/01/2016 82591 X-Ray Foot Complete Completed 10/01/2016 27170 X-Ray Ankle Ap & Lateral Completed 10/01/2016 22146 X-Ray Ankle Ap & Lateral Completed 09/28/2016 97450 X-Ray Foot Complete Completed 03/06/2016 98465 X-Ray Knee Complete W/Obliques & Tunnel And/Or Standing Completed Views 09/23/2015 44272 X-Ray Foot Complete Completed 03/12/2015 63250 X-Ray Hip Complete Two Views Completed 03/12/2015 64292 X-Ray Pelvis Ap Only Completed 03/12/2015 76446 X-Ray Spine Lumbosacral Complete W/Oblique Views Completed 06/28/2009 60974566 Colonoscopy Completed Encounters Type Date Location Provider Dx Diagnosis Office Visit 07/15/2018 [facility] Gabrielle, F33.1 Major depressive 11:00a Lauren, MACHINE [employer]OP MAKER HELPER disorder, recurrent, moderate G20 Parkinson's disease M15.0 [...] diagnosis of htn Office Visit 01/10/2018 9:00a [facility] Lauren Maher, Z01.419 Encntr for tower foreman exam MACHINE HOOP MAKER HELPER (general) (routine) w/o abn findings F33.1 Major depressive disorder, recurrent, moderate G20 Parkinson's disease J45.20 Mild intermittent asthma, uncomplicated M54.5 Low back pain G25.81 Restless legs syndrome J30.1 Allergic rhinitis due to pollen M15.0 Primary generalized (osteo)arthritis M79.1 Myalgia R30.0 Dysuria Z68.32 Body mass index (BMI) 32.0-32.9, adult Office Visit 07/12/2017 10:00a [facility] Lauren Maher, F33.1 Major depressive MACHINE [employer] MAKER HELPER disorder, recurrent, moderate G20 Parkinson's disease M79.1 [...] Encounter for immunization Office Visit 01/06/2017 11:00a [facility] Natan Dobson DO F33.1 Major depressive disorder, recurrent, moderate R73.01 Impaired fasting glucose G20 Parkinson's disease M79.1 Myalgia K27.9 Peptic ulc, site unsp, unsp as ac or chr, w/o hemor or perf R74.8 Abnormal levels of other serum enzymes G25.81 Restless legs syndrome J45.20 Mild intermittent asthma, uncomplicated Office Visit 10/06/2016 2:30p [facility] Natan Dobson DO M76.821 Posterior tibial tendinitis, RIGHT leg Office Visit 10/01/2016 9:00a [facility] Eleonora Townsend PA M79.671 Pain in RIGHT foot Office Visit 09/28/2016 11:30a [facility] Kya Orona MD M79.671 Pain in RIGHT foot L30.1 Dyshidrosis [pompholyx] L03.119 Cellulitis of unspecified part of limb D50.9 Iron deficiency anemia, unspecified Office Visit 07/02/2016 1:15p [facility] Natan Dobson DO F33.1 Major depressive disorder, recurrent, moderate G20 Parkinson's disease M79.1 Myalgia K27.9 Peptic ulc, site unsp, unsp as ac or chr, w/o hemor or perf R74.8 Abnormal levels of other serum enzymes G25.81 Restless legs syndrome J45.20 Mild intermittent asthma, uncomplicated D50.9 Iron deficiency anemia, unspecified R73.01 Impaired fasting glucose Office Visit 03/06/2016 8:00a [facility] Lauren Maher, M25.562 Pain in LEFT knee MACHINE [employer]KER HELPER Office Visit 12/25/2015 11:00a [facility] Natan Dobson DO F33.1 Major depressive disorder, recurrent, moderate G20 Parkinson's disease R74.9 Abnormal serum enzyme level, unspecified M79.1 Myalgia K27.9 Peptic ulc, site unsp, unsp as ac or chr, w/o hemor or perf G25.81 Restless legs syndrome J45.20 Mild intermittent asthma, uncomplicated D50.9 Iron deficiency anemia, unspecified J30.1 Allergic rhinitis due to pollen Office Visit 09/23/2015 1:00p [facility] Natan Dobson DO M72.2 Plantar fascial fibromatosis Office Visit 06/11/2015 11:15a Natan Gonzales DO F33.1 Major depressive disorder, recurrent, moderate G20 Parkinson's disease J45.20 Mild intermittent asthma, uncomplicated R74.8 Abnormal levels of other serum enzymes M79.1 Myalgia K27.9 Peptic ulc, site unsp, unsp as ac or chr, w/o hemor or perf Office Visit 03/12/2015 2:30p Natan Gonzales DO 719.45 Pain Joint Pelvic Region & Thigh Office Visit 11/05/2014 4:15p Natan Gonzales DO 296.32 Depressive Disorder Major Recurrent Moderate 332.0 Paralysis Agitans 493.10 Asthma Intrinsic Unspecified 790.5 Serum Enzyme Levels Abnormal Other Nonspec 729.1 Myalgia & Myositis Unspec 533.90 Peptic Ulcer Unspec Acute Chronic W/O Hemo Or Perf W/O Obstr Plan of Treatment Future Appointment(s):01/23/2019 10:00 am - Lauren Maher MACHINE HOOP MAKER HELPER at [facility]01/06 8:25 am - Schedule, Laboratory at [facility]08/23/2018 - Lauren Maher NPZ01.818 Encounter for other preprocedural examinationComments:Take Carbidopa- Levodopa and Gabapentin on morning of surgery with sip of water.No aspirin or NSAIDs within 7 days of surgeryResume all routine meds as scheduled following surgery.Will notify of lab results.EKG ok.M25.562 Pain in LEFT kneeComments: Will check UA and urine C&SF33.1 Major depressive disorder, recurrent, moderateComments:Continue current dose of Cymbalta and participation in online support ttoesG51 Parkinson's diseaseComments:Continue meds and follow up with Dr. FarmerM15.0 Primary generalized (osteo)arthritisComments:Will continue FtekfkumpgS16.5 Low back painComments:Will continue GabapentinLimit use of ibuprofen and Naproxen as much as possible and none within 7 days of hxpgkdpL52.81 Restless legs syndromeComments:Continue as needed YugebslbpO82.20 Mild intermittent asthma, uncomplicatedComments:Monitor lwkeqyysQ27.1 Allergic rhinitis due to pollenComments:Attempt to avoid fresh cut grass and other aggravators.May continue Claritin (Loratadine) or may tryZyrtec (Cetirizine) or Gail (Fexofenedine).Continue WxasuwdwydoW14.9 Peptic ulcer, site unspecified , unspecified as acute or chroE55.9 Vitamin D deficiency, qpkwisxpysqW07.311 Vitreous membranes and strands, RIGHT eyeZ68.30 Body mass index (BMI) 30.0-30.9 , adultComments:Advised healthy well balanced diet with portion control.Recommend increased daily exercise. Increasewater intake.
--- OUTSIDE RECORDS SUMMARY | 2018-09-15 09:25 | XMS REPORT | Continuity of Care Document ---
:1955 External Reference #:[id number] Author Name Renate Stewart Care Team Providers Name Role Phone Maria Luisa Anthony FNP Primary Care Physician Unavailable Payers Date Identification Numbers Payment Provider Subscriber Effective: 2012 Policy Number: [id number] [facility] Serene Quintero Group Number: [id number] [address] PayID: [id number] [place] [address] Advance Directives Description No Information Available Problems [...] Occupation Retired Tobacco Use Start: Unknown Quit 1985 Tobacco Use Start: Unknown Never Smoked Cigars Tobacco Use Start: Unknown Never Smoked A Pipe Smokeless Tobacco Never Used Smokeless Tobacco ETOH Use Denies alcohol use Tobacco Use Start: Unknown End: Patient is a former smoker Unknown Recreational Drug Use Denies Drug Use Smoking Status Reviewed: 09/02/18 Patient is a former smoker Exercise Type/Frequency Exercises sporadically Allergies, Adverse Reactions, Alerts Description No Known Drug Allergies Medications Medication Date Status Form Strength Qnty SIG Indications Ordering Provider Amantadine HCL 10/18/ Active Capsules 100mg 180cap 1 by G24.01 Kenan Walker s mouth [place], twice a M.D. day Carbidopa-Levod 12/21/ Active [...] tab by Unknown 0000 mouth as needed Tumeric With / Active 1 po qday Unknown Cumin 0000 Melatonin / Active Chewtabs 2.5mg 1 tab Unknown Gummies 0000 every night at bedtime as needed Ferrousul / Active Tablets 325(65Fe) 1 tab by Unknown 0000 mg mouth twice a day with some citrus juice but not with food. Gabapentin 07/16/ Hx Capsules 100mg 30caps 1 [...] 90caps 2 by Unknown 0000 - mouth 07/15/ every day 2016 Gabapentin / Hx Capsules [...] 1 tablet Unknown 0000 - with food 03/02/ by mouth 2017 twice a day prn Vitamin B / Hx Tablets 1 by Unknown Complex 0000 - mouth day 2018 Immunizations Description No Information Available Vital Signs Date Vital Result Comment 09/02/2018 10:19am Height 61 inches 5'1" Weight 159.00 lb Heart Rate 64 /min BP Systolic 140 mmHg BP Diastolic 84 mmHg BMI (Body Mass Index) 30.0 kg/m2 09/01/2018 9:41am Height 61 inches 5'1" Weight 156.00 lb Heart Rate 64 /min BP Systolic Sitting 124 mmHg BP Diastolic Sitting 70 mmHg Respiratory Rate 16 /min Pain Level 3 BMI (Body Mass Index) 29.5 kg/m2 08/12/2018 10:48am Height 61 inches 5'1" Weight [...] Available Procedures Date Code Description Status 08/08/2018 46909 Xray Knee 3 Views Completed 04/19/2014 99913 Fibroptic Laryngoscopy Completed Encounters Type Date Location [...] Of Ana Ritchie MD osteoarthritis, left AT [place] knee M25.362 Other instability, left knee M25.562 Pain in left knee Office Visit 03/03/2018 [place] Vistaruby Arana G20 Parkinson's 3:30p [facility] disease [facility] G25.81 Restless legs syndrome G24.01 Drug induced subacute dyskinesia Office Visit 10/18/2017 10:30a [place] [facility]an Arana G20 Parkinson's [facility] Farmer M.D. disease G25.81 Restless legs syndrome G24.01 Drug induced subacute dyskinesia Office Visit 08/26/2017 [place] Vistar[place]y Arana G20 Parkinson's 9:15a [facility] disease [facility] G25.81 Restless legs syndrome Office Visit 01/14/2017 [place] V[place]y Arana G20 Parkinson's 8:30a [facility] disease [facility] G25.81 Restless legs syndrome Office Visit 07/16/2016 [place] V[place] Arana G20 Parkinson's 10:45a [facility] disease [facility] G25.81 Restless legs syndrome Office Visit 05/16/2015 [place] V[place] Arana G20 Parkinson's 11:45a [facility] disease [facility] Office Visit 11/22/2014 [place] V[place] Arana 332.0 Paralysis 1:30p [facility] cornelio [facility] 784.42 Dysphonia Office Visit 05/17/2014 [place] V[place] Arana 332.0 Paralysis 8:45a [facility] cornelio [facility] Office Visit 04/19/2014 [facility] [place] 784.42 Dysphonia 9:45a C.M[facility]AYuliya AT [place] Thom Silverio 332.0 Paralysis [facility] Office Visit 11/23/2013 [place] Vistaruby Arana 332.0 Paralysis 3:15p [facility] Office Visit 08/24/2013 [facility] Kenan Arana 332.0 Paralysis 8:45a [facility] Office Visit 06/08/2013 [facility] Kenan Arana 332.0 Paralysis 3:00p [facility] Plan of Treatment Future Appointment(s):09/26/2018 1:15 pm - Yvette [facility]as M[facility]/09/2019 10:00 am - Kenan Farmer M.D. at [facility]09/15/2018 11:30 am - JAIRO Warren at [facility]09/15/2018 11:30 am - JULITO Johnson at [facility]09/15/2018 11:30 am - Yvette Arias M.D. at [facility]09/02/2018 - Yvette Arias M.D.M21.062 Valgus deformity, not elsewhere classified, left kneeFollow up:Follow up: 2 weeks after aprvkqzX30.12 Unilateral primary osteoarthritis, left kneeM25.462 Effusion , left kneeM25.562 Pain in left knee
[2018-09-15] MEDS ORDERED: Midazolam* 1 MG/ML 2 ML VIAL (2 MG) ONE (09:33)
[2018-09-15] MEDS ORDERED: fentaNYL* 50 MCG/ML 2 ML VIAL (100 MCG VIAL) ONE (09:33)
[2018-09-15] MEDS ORDERED: Propofol* 10 MG/ML 20 ML BTL ONE (09:42)
[2018-09-15] MEDS ORDERED: Dexamethasone IV* 4 MG/ML 1 ML (4 MG) ONE (09:47)
[2018-09-15] MEDS ORDERED: celeCOXIB CAP* 100 MG ONE (09:47)
[2018-09-15] MEDS ORDERED: Gabapentin CAP(*) 300 MG ONE (09:48)
[2018-09-15] MEDS ORDERED: ceFAZolin 2 GM in NS PREMIX(*) 2 GM/100 ML BAG IVPB ONE (09:48)
[2018-09-15] MEDS ORDERED: Famotidine IV* 10 MG/ML 2 ML (20 mg) ONE (09:48)
[2018-09-15] MEDS ORDERED: Acetaminophen TAB* 325 MG ONE (09:48)
[2018-09-15] MEDS ORDERED: ROPIVACAINE 5 MG/ML 30 ML BTL (0.5%) ONE ×2 (10:47→11:14)
[2018-09-15] MEDS ORDERED: Famotidine TAB* 20 MG ONE (10:53)
[2018-09-15] MEDS ORDERED: Lidocaine 1%* 5 ML VIAL ONE (11:14)
[2018-09-15] MEDS ORDERED: Propofol* 500 MG/50 ML BTL ONE (12:06)
[2018-09-15] MEDS ORDERED: KETAMINE HCL* 50 MG/ML 10 ML VIAL ONE (12:09)
[2018-09-15] MEDS ORDERED: HYDROmorphone INJ1* 1 MG/ML SYRINGE IV PRN (12:48)
[2018-09-15] MEDS ORDERED: Ondansetron INJ* 2 MG/ML VIAL IV PRN ×2 (12:48→14:11)
[2018-09-15] MEDS ORDERED: oxyCODONE TAB* 5 MG TAB PO PRN (12:48)
[2018-09-15] MEDS ORDERED: fentaNYL* 50 MCG/ML 2 ML VIAL (100 MCG VIAL) IV PRN (12:48)
[2018-09-15] MEDS ORDERED: Naloxone* 0.4 MG/ML 1 ML VIAL IV PRN (12:48)
[2018-09-15] MEDS ORDERED: Acetaminophen IV 1GM/100ML * 1,000 MG/100 ML VIAL IVPB ONE (12:48)
[2018-09-15] MEDS ORDERED: Polyethylene Glycol 3350* 17 GM PACKET PO PRN (14:11)
[2018-09-15] MEDS ORDERED: Magnesium Hydroxide LIQ* 30 ML UDC PO PRN (14:11)
[2018-09-15] MEDS ORDERED: Cyclobenzaprine TAB* 10 MG PO PRN (14:11)
[2018-09-15] MEDS ORDERED: Morphine INJ* 2 MG/ML 1 ML SYRINGE (TWO MG - NEW SYRINGE VERSION) IV PRN (14:11)
[2018-09-15] MEDS ORDERED: diPHENhydraMINE IV* 50 MG/ML 1 ml VIAL (BENADRYL) IV PRN (14:11)
[2018-09-15] MEDS ORDERED: oxyCODONE/Acetamin 5/325 MG* TAB PO PRN (14:11)
[2018-09-15] MEDS ORDERED: Ondansetron TAB* 4 MG PO PRN (14:11)
[2018-09-15] MEDS ORDERED: Bisacodyl SUPP* 10 MG SUPP PR PRN (14:11)
[2018-09-15] MEDS ORDERED: traMADol TAB* 50 MG PO PRN (14:11)
--- NOTE | 2018-09-15 15:02 | PN ---
Progress Note - Progress Note Date of Service: 09/15/18 Note: patient resting in recovery. pain well controlled. able to dorsi flex/plantar flex, 2+ DP pulse and intact sensation
[2018-09-15] MEDS: Lactated Ringers 1000 ML Bag* 1,000 ML IV SCH (15:30)
[2018-09-15] MEDS: Carbidopa/Levodop 25/100 MG TAB(*) PO SCH ×2 (17:35→21:56)
[2018-09-15] MEDS: oxyCODONE/Acetamin 5/325 MG* TAB PO PRN (17:35)
[2018-09-15] MEDS: ceFAZolin 1 GM ADVAN(*) 1 GM in NS 0.9% 50 ML* 50 ML IVPB SCH (20:21)
[2018-09-15] MEDS: Acetaminophen TAB* 325 MG PO SCH (21:56)
[2018-09-15] MEDS: Amantadine CAP* 100 MG PO SCH (21:56)
[2018-09-15] MEDS: Magnesium Hydroxide LIQ* 30 ML UDC PO SCH (21:58)
[2018-09-15] MEDS: oxyCODONE TAB* 5 MG TAB PO PRN (22:00)
[2018-09-15] MEDS: Docusate CAP* 100 MG PO SCH (22:03)
[2018-09-16] MEDS: Lactated Ringers 1000 ML Bag* 1,000 ML IV SCH (01:37)
[2018-09-16] MEDS: ceFAZolin 1 GM ADVAN(*) 1 GM in NS 0.9% 50 ML* 50 ML IVPB SCH ×2 (03:37→12:34)
[2018-09-16 05:38] LABS: Hematocrit 36 % (33-41); Hemoglobin 12.3 g/dL (12.0-16.0); Platelet Count 301 10^3/uL (150-450)
[2018-09-16 05:53] LABS: BUN/Creatinine Ratio 17.4 (8-20); Calcium 8.9 mg/dL (8.6-10.3); EGFR African American 81.2 (>60); EGFR Non-African American 67.1 (>60); Potassium 4.8 mmol/L (3.5-5.0)
[2018-09-16] MEDS: Acetaminophen TAB* 325 MG PO SCH ×3 (06:15→21:32)
[2018-09-16] MEDS: oxyCODONE/Acetamin 5/325 MG* TAB PO PRN ×2 (06:19→12:43)
[2018-09-16] MEDS: Amantadine CAP* 100 MG PO SCH ×2 (08:23→21:31)
[2018-09-16] MEDS: DULoxetine DR CAP* 60 MG CAP.DR PO SCH (08:23)
[2018-09-16] MEDS: oxyCODONE TAB* 5 MG TAB PO PRN ×2 (08:23→19:27)
[2018-09-16] MEDS: Carbidopa/Levodop 25/100 MG TAB(*) PO SCH ×3 (08:23→21:33)
[2018-09-16] MEDS: Docusate CAP* 100 MG PO SCH ×2 (08:23→21:32)
[2018-09-16] MEDS: Apixaban* 2.5 MG TAB PO SCH ×2 (08:23→21:33)
[2018-09-16] MEDS: Magnesium Hydroxide LIQ* 30 ML UDC PO SCH ×2 (08:24→21:34)
--- NOTE | 2018-09-16 08:52 | OP ---
DATE OF OPERATION: 09/15/18 - ROOM #349 DATE OF : 59 ATTENDING SURGEON: Yvette Arias MD. LOGISTICS MANAGEMENT SPECIALIST: JULITO Ramirez. Ms. Pagan did help throughout the procedure with preparation of the leg, wound retraction, manipulation of the knee, and wound closure. ANESTHESIOLOGIST: Dr. Leblanc. ANESTHESIA: Spinal. PRE-OP DIAGNOSIS: Severe end-stage degenerative osteoarthritis of the left knee joint. POST-OP DIAGNOSIS: Severe end-stage degenerative osteoarthritis of the left knee joint. OPERATIVE PROCEDURE: Left total knee arthroplasty. TOURNIQUET TIME: 42 minutes. COMPLICATIONS: None. ESTIMATED BLOOD LOSS: 200 cc. SPECIMEN: Bone and cartilage from the left knee joint sent to pathology. HARDWARE USED: This is cemented [employer] total knee arthroplasty hardware. Two packages of Simplex bone cement. For the femur, a size 4 left Oxinium posterior stabilized LEGION femoral component. For the tibia, a size 3 left tibial baseplate JOSELYN II. For the insert, a 9 mm posterior stabilized articular insert size 3/4 and for the patella, a 29 mm 3-peg all-poly patella with 7.5 thickness. BRIEF HISTORY/INDICATION: Ms. Marie is a 63-year-old female with years of increasingly severe left knee pain. Her radiographs showed iceo-nx-oqgr arthritis. She failed conservative treatment with antiinflammatories, pain medications, brace wear, ambulatory assistive devices, and intraarticular injections. The patient elected to undergo left total knee arthroplasty due to continued pain and decreased quality of life. Informed consent was obtained. She understood the risks of surgery included; but were not limited to bleeding, infection, damage to nearby structures, continued pain, need for further surgery , intraoperative fracture, nerve palsy, hardware failure or loosening, knee stiffness, loss of motion, stroke, heart attack, blood clot, and . She wished to proceed. INTRAOPERATIVE FINDINGS: Intraoperatively, the patient was noted to have full- thickness loss of cartilage in all three compartments with extensive osteophyte formation. DESCRIPTION OF PROCEDURE: Ms. Marie was identified in the preanesthesia unit. Her left lower extremity was marked as the correct operative side. Informed consent was signed and placed in the chart. The patient was taken to the operating room and placed under anesthesia. A Johnson catheter was placed. Tourniquet was placed on the left thigh. Left lower extremity was prepped and draped in the usual sterile fashion. A preop time-out was made to correctly identify the patient, side, and site. Appropriate perioperative antibiotics were given within 1 hour of the incision. Tourniquet was inflated and total tourniquet time for this procedure was 42 minutes. A midline incision was made with the 10-blade and carried down to the extensor mechanism. A new 10-blade was used to make a standard medial parapatellar arthrotomy. The patella was subluxed laterally. Electrocautery was used to subperiosteally elevate soft tissue off the superomedial tibia to the midsagittal plane. The knee was flexed up. The anterior horn of the lateral meniscus and ACL were sharply released. A drill was used to enter the distal femur. Intramedullary distal femoral cutting guide was pinned on the distal femur. Oscillating saw was used to make the distal femoral cut. Next, the external rotation guide was pinned on the distal femur. The distal femur was sized to a size 4. Size 4 multi-cutting jig was pinned on the distal femur. An oscillating saw was used to make the appropriate 4 chamfer cuts. The extramedullary tibial cutting guide was pinned on the proximal tibia. An oscillating saw was used to make the proximal tibial cut perpendicular to the mechanical axis of the tibia. The bone was carefully removed. The knee was brought out into full extension. The pacer block had excellent fit with the knee in full extension. Medial and lateral ligaments were well balanced. Flexion and extension gaps were well balanced. The knee was flexed up. A laminar lcac operator was placed both medially and laterally. Any remaining meniscus was carefully removed using electrocautery. A curved osteotome was used to remove any posterior osteophytes. Tibial tray and drop garfield were placed and the tibial cut was once again confirmed to be satisfactory. A size 4 left femoral trial was impacted onto the distal femur and had excellent fit and stability. The box for the posterior stabilized implant was prepared using a reamer and box cut osteotome. Size 3 tibial tray trial and a 9 mm insert trial were placed and the knee was taken through a range of motion. The knee had full extension to 130 degrees of flexion. There was satisfactory patellofemoral tracking. The patella was everted; 7 mm of patellar bone and cartilage was carefully removed using an oscillating saw. The patella was sized to a size 29. Three peg holes were drilled through the size 29 guide. Size 29 trial patella with 7.5 thickness was placed and the knee was taken through a range of motion. There was satisfactory patellofemoral tracking. All trials were carefully removed. The tibia was subluxed anteriorly and sized to a size 3. Proximal tibia was prepared using a size 3 keel punch. All bony cut surfaces were copiously irrigated with sterile saline and dried. Final implants were cemented into place starting with the tibia, followed by the femur and last the patella. A 9 mm insert trial was placed and the knee was brought out into full extension. Tourniquet was turned down at 42 minutes. The knee was copiously irrigated with sterile saline and electro-cautery was used to obtain meticulous hemostasis. Once the cement had fully cured, the insert trial was removed. Any excess cement was removed from around the capsule and hardware. Final insert chosen was a 9 mm posterior stabilized articular insert, size 3/4. This was locked into position on the tibial tray. Stability of the insert was checked and rechecked and noted to be stable. The extensor mechanism was closed using interrupted #1 Vicryls. The rest of the incision was closed in a layered fashion using 0 and 2-0 Vicryls. Skin was closed using running 3-0 nylon suture. Sterile Xeroform, 4x4s, and Webril were used to cover the incision. Rickey wrap and cold pack were placed over this. The patient's anesthesia was reversed without difficulty. She was taken to the PACU in stable condition. Intended weight-bearing will be weightbearing as tolerated. Intended DVT prophylaxis will be Eliquis. [id number]/[facility] #: [id number] [facility]ITALMahogany
--- NOTE | 2018-09-16 11:29 | PN ---
Progress Note - Progress Note Date of Service: 09/16/18 SOAP: Subjective: []Patient seen at bedside. Doing fairly well. Denies SOB, CP, palpitations or dizziness. Hopes to go home tomorrow. Objective: [] Vital Signs Temp 97.7 F 09/16/18 08:45 Pulse 70 09/16/18 08:45 Resp 18 09/16/18 10:47 BP 147/77 09/16/18 08:45 Pulse Ox 94 09/16/18 08:45 Intake & Output 09/15/18 09/16/18 09/16/18 18:59 06:59 18:59 Intake Total 1300 1405 360 Output Total 200 1525 Balance 1100 -120 360 Intake: IV Fluids 1300 1035 ABX - CEFAZOLIN 55 LR 1300 980 Oral 370 360 Output: KAREN #1 0 Johnson 200 1525 Other: # Bowel Movements 0 Laboratory Results - last 24 hr 09/16/18 09/16/18 04:51 04:52 Hgb 12.3 Hct 36 Plt Count 301 MPV 7.0 L Sodium 138 Potassium 4.8 Chloride 104 Carbon Dioxide 29 Anion Gap 5 BUN 15 Creatinine 0.86 Est GFR ( Amer) 81.2 Est GFR (Non-Af Amer) 67.1 BUN/Creatinine Ratio 17.4 Glucose 99 Calcium 8.9 Left knee dressings are dry and intact Calf NT and soft +Df left ankle sensation and circulation intact distally Assessment: []s/p LTK POD #1 Plan: []PT/OT WBAT LLE Eliquis 2.5 BID for DVT prophylaxis dressing change tomorrow Possible discharge home 09/17
[2018-09-17] MEDS: oxyCODONE/Acetamin 5/325 MG* TAB PO PRN ×2 (03:26→08:29)
[2018-09-17] MEDS: Acetaminophen TAB* 325 MG PO SCH (04:57)
[2018-09-17 05:56] LABS: Hematocrit 35 % (33-41); Hemoglobin 12.1 g/dL (12.0-16.0); Mean Platelet Volume 7.1 fL (7.4-10.4); Platelet Count 298 10^3/uL (150-450)
[2018-09-17] MEDS: Magnesium Hydroxide LIQ* 30 ML UDC PO SCH (08:29)
[2018-09-17] MEDS: Amantadine CAP* 100 MG PO SCH (08:30)
[2018-09-17] MEDS: Apixaban* 2.5 MG TAB PO SCH (08:30)
[2018-09-17] MEDS: Docusate CAP* 100 MG PO SCH (08:30)
[2018-09-17] MEDS: DULoxetine DR CAP* 60 MG CAP.DR PO SCH (08:30)
[2018-09-17] MEDS: Carbidopa/Levodop 25/100 MG TAB(*) PO SCH (08:30)
[2018-09-17 09:28] VITALS: BP 154/74
--- NOTE | 2018-09-17 10:10 | PN ---
Progress Note - Progress Note Date of Service: 09/17/18 SOAP: Subjective: Pt seen at bedside. States pain much improved today. No complaints today. Denies CP, SOB, F/C Vital Signs: Temp Pulse Resp BP Pulse Ox 97.9 F 70 20 154/74 99 09/17/18 07:15 09/17/18 07:15 09/17/18 08:29 09/17/18 07:15 09/17/18 08:00 Laboratory Last Values Hgb 12.1 g/dL (12.0-16.0) 09/17/18 05:15 Hct 35 % (33-41) 09/17/18 05:15 Plt Count 298 10^3/uL (150-450) 09/17/18 05:15 MPV 7.1 fL (7.4-10.4) L 09/17/18 05:15 Sodium 138 mmol/L (135-145) 09/16/18 04:52 Potassium 4.8 mmol/L (3.5-5.0) 09/16/18 04:52 Chloride 104 mmol/L (101-111) 09/16/18 04:52 Carbon Dioxide 29 mmol/L (22-32) 09/16/18 04:52 Anion Gap 5 mmol/L (2-11) 09/16/18 04:52 BUN 15 mg/dL (6-24) 09/16/18 04:52 Creatinine 0.86 mg/dL (0.51-0.95) 09/16/18 04:52 Est GFR ( Amer) 81.2 (>60) 09/16/18 04:52 Est GFR (Non-Af Amer) 67.1 (>60) 09/16/18 04:52 BUN/Creatinine Ratio 17.4 (8-20) 09/16/18 04:52 Glucose 99 mg/dL (70-100) 09/16/18 04:52 Calcium 8.9 mg/dL (8.6-10.3) 09/16/18 04:52 Objective: Alert and awake, NAD, Calves soft and nontender, Dressing changed, incision C/D/ I, NVI distally Assessment: 63 yo female s/p left TKA POD #2 Plan: OOB, PT/OT WBAT Pain control DVT prophylaxis - Eliquis 2.5 BID D/C home today. Follow up with Dr. Arias in 10-14 days.
--- NOTE | 2018-09-18 21:44 | DS ---
DISCHARGE SUMMARY: DATE OF ADMISSION: 09/15/18 DATE OF DISCHARGE: 09/17/18 ATTENDING PHYSICIAN: Dr. Yvette Arias.* (DICTATED BY JULITO ZHENG) PRINCIPAL DIAGNOSIS: Left knee osteoarthritis. SECONDARY DIAGNOSES: 1. Parkinson's disease. 2. Gastroesophageal reflux disease. 3. Depression. 4. Asthma. PRINCIPAL PROCEDURE: Left total knee arthroplasty. REASON FOR HOSPITALIZATION: Serene is a 63-year-old female with persistent complaints of left knee pain due to end-stage osteoarthritis. She had failed conservative treatment and elected to proceed with left total knee arthroplasty by Dr. Arias on 09/15/18. HOSPITAL COURSE: The patient was admitted to [facility] on 09/15/18 for anticipated left total knee arthroplasty with Dr. Arias. She underwent surgery without any complications. She was transferred to the recovery room and subsequently the surgical stay unit in a stable condition. The patient has participated with physical therapy and occupational therapy throughout the hospital course and has done well. Her vital signs have remained stable including remaining afebrile. Hemoglobin and hematocrit have been drawn daily during the hospital course. Her hemoglobin was 12.1 and hematocrit 35 on the day of discharge. She has been weightbearing as tolerated. She has had a DVT prophylaxis on Eliquis 2.5 mg b.i.d. Pain has been controlled with oxycodone. She has had no other events or complications during the hospital stay and she was discharged on 09/17/18 in a stable condition. DISCHARGE INSTRUCTIONS: Weightbearing as tolerated. Wound care, okay to shower on postop day #3. No bathing, swimming, submerging wound. Use gentle soap, pat dry, cover with gauze, Rickey wrap or tape. Call orthopedic office for increased drainage, redness, increased pain or fever; go to ER with shortness of breath or chest pain. Diet: Regular diet, increase fluids and fiber to prevent constipation. Continue to use stool softeners, call office if no bowel motion within 48 hours. Continue physical therapy and occupational therapy exercises as shown. Visiting home nurse to do wound checks. DVT prophylaxis, Eliquis 2.5 mg twice daily for 1 month. Pain control with Percocet 5/325 mg 1 to 2 tabs by mouth every 4 to 6 hours as needed for pain, maximum of 10 tablets per day. Antibiotics required prior to any dental work. Follow up with Dr. Arias in 10 to 14 days. Call for an appointment. Please call our office with any questions or concerns at [phone]. JULITO ZHENG [id number]/[facility] #: [id number] JU
== END 2018-09-17 11:30 | disposition home health service (06) | DRG 302 ==
LOC: AA 09:21 → SSU 14:11
PROVIDERS: ADMIT Orthopaedic Surgery Adult Reconstructive Orthopaedic Surgery; ATTEND Orthopaedic Surgery Adult Reconstructive Orthopaedic Surgery
PROC: 0SRD069 Replacement of Left Knee Joint with Oxidized Zirconium on Polyethylene Synthetic Substitute, Cemented, Open Approach (ICD-10-PCS; principal; 2018-09-15 12:00)
DX: M17.12 Unilateral primary osteoarthritis, left knee (principal); G20 Parkinson's disease; K21.9 Gastro-esophageal reflux disease without esophagitis; F32.9 Major depressive disorder, single episode, unspecified; J45.909 Unspecified asthma, uncomplicated; M25.462 Effusion, left knee; M21.162 Varus deformity, not elsewhere classified, left knee; G89.29 Other chronic pain; M54.5 Low back pain; M25.762 Osteophyte, left knee; Z87.440 Personal history of urinary (tract) infections; Z87.891 Personal history of nicotine dependence; Z90.49 Acquired absence of other specified parts of digestive tract; Z98.84 Bariatric surgery status; Z82.49 Family history of ischemic heart disease and other diseases of the circulatory system
CPT/HCPCS: 36415; 80048; 85014; 85018; 85049; A9270-GY; C1776; J0690; J1100; J2250; J2405; J2704; J2795; J3010